=== PATIENT | male | born 1945 | race Caucasian/White ===

== ENCOUNTER 2018-04-18 18:20 | Inpatient (IN) ==
[2018-04-18] MEDS ORDERED: Artificial Tears SOLN 15 ML BOTTLE BOTH EYES PRN (22:31)
[2018-04-18] MEDS ORDERED: Naloxone 0.4 MG/ML INJ IVP PRN (22:31)
--- NOTE | 2018-04-18 22:44 | Internal Med History&Physical ---
<Aime Solis - Last Filed: 04/19/18 01:16> Date of Encounter: 04/19/18 Time of Encounter: 22:40 Internal Medicine - H&P: HPI Chief complaint: sob Admitted From: Home Plans for Post Hospital Care: Home History of present illness: Mr. Calderon is a 72 year old male with history of A. fib on Coumadin, paraplegia , diastolic CHF is transferred from [facility] after being intubated for acute respiratory failure secondary to acute on chronic diastolic congestive heart failure. Patient is intubated and sedated. Patient presented [facility] on 04/16/18 with chief complaint of shortness of breath that was progressively worsening for 5 days. Patient's reports that she was replacing the patient's mattress last Saturday (patient has paraplegia from failed lumbar spinal fusion surgery) , lifted the patient up with a manual credit risk analyst and during the process patient slipped inside of the credit risk analyst, without falling, and patient told his that he had sudden onset of pain in his left flank. Patient's felt his left flank and noticed a knot. During the next five days, patient was noticed to have worsening edema of the lower extremities. Family noticed patient had decreased appetite, and worsening confusion. Family also states the patient did not have fevers, chills, chest pain, cough, hemoptysis, hematemesis, melena, hematochezia. Family does report sputum production. Due to worsening confusion and shortness of breath patient was brought to the ED. At that time it was noticed that he had a large hematoma in his left abdominal/flank wall. Patient was noted to have blood in the rectum by ED doctor. He was noticed to have a hemoglobin of 5.5, hypotensive , YVES, hyperkalemia, INR of 18, CHF exacerbation, WBC was 24 platelets 294, serum creatinine 2.92. Patient was transfused 2 units of packed red blood cells and started on norepinephrine drip. His INR was reversed with vitamin K and FFP and he was started on IV Lasix for diuresis. He was started on Protonix twice a day. Patient's hemoglobin improved to 8, INR to 1.8 but he still required pressor support and serum creatinine was 2.7. He underwent chest x- ray which showed cardiomegaly with interstitial pulmonary edema. Echocardiogram showed a left ventricular ejection fraction of 55-60% with aortic stenosis. Retroperitoneal ultrasound was negative for stones or obstructive uropathy. Initial ABG on admission at [facility] showed pH of 7.34 with a PCO2 of 25 and bicarbonate of 13.5. CPK was 236. On midnight of patient developed worsening confusion, shortness of breath and repeat ABG showed a pH of 6.9 with a PCO2 of 111 and a PO2 of 47 patient was intubated at [facility]. Thereafter patient was transferred to [facility] for further evaluation and treatment as there was mention of the patient may require dialysis for fluid overload and YVES. Internal Medicine - H&P: Meds Acidophilus 500 kate u PO DAILY 04/18/18 [History] Ascorbic Acid [Vitamin C] 500 mg PO DAILY 04/18/18 [History] Calcium Citrate/Vitamin D2 [Cosmo-Citrate Plus Vitamin D Tab] 2 each PO 04/18/18 [ History] Ferrous Sulfate 325 mg PO DAILY 04/18/18 [History] Gabapentin [Neurontin] 300 mg PO BID 04/18/18 [History] Lantus 30 units SQ ONCE 04/18/18 [History] Pioglitazone HCl [Actos] 30 mg PO DAILY 04/18/18 [History] Potassium Chloride [Potassium Chloride] 20 mg PO DAILY 04/18/18 [History] Pravastatin Sodium [Pravachol] 20 mg PO THIERRY 04/18/18 [History] Warfarin [Coumadin] 5 mg PO DAILY 04/18/18 [History] metFORMIN [Glucophage] 500 mg PO TID 04/18/18 [History] 3 Allergy/AdvReac Type Severity Reaction Status Date / Time iodine Allergy Unknown Hives Verified 04/18/18 22:51 ROS unobtainable: due to endotracheal tube All Systems PM: A 10-system review of systems was performed and is negative for pertinent findings except as documented above in the HPI. - Constitutional Vitals: Resp Pulse Ox 14 100 04/18/18 21:26 04/18/18 21:26 Exam: General: Intubated, sedated, does not follow commands. HEENT: Head atraumatic, normocephalic, absent fullness in neck absent lymphadenopathy, Heart: Regular rate and rhythm with no murmur Lungs: Clear to auscultation bilaterally anteriorly Abdomen: Edematous, left flank wall/abdominal wall hematoma, positive bowel sounds Skin: Stage II coccyx decubitus ulcer with oozing of blood Extremities: 3+ pedal edema Neuro: Intubated and sedated Vascular: radial pulses 2 out of 4 Internal Med - H&P Results - Labs CBC & Chem 7: 04/18/18 22:43 04/18/18 22:43 - Assessment and plan (1) Anemia Current Visit: Yes Status: Acute Assessment and plan: 72-year-old male presented to [facility] and was found to have severe anemia of 5.5 He was found to have blood in his rectum by the [facility] emergency department as well as a large abdominal wall hematoma He was also supratherapeutic on warfarin. INR was 18 He is transfused 2 units of packed red blood cells, FFP and INR was reversed with vitamin K He was also hypotensive and required pressor support. Currently ON PPI BID, GI consulted. hold coumadin. Ct abdomen w/o contrast Qualifiers: Anemia type: other cause Other causes of anemia: acute posthemorrhagic Qualified Code(s): D62 - Acute posthemorrhagic anemia (2) GI bleed Current Visit: Yes Status: Acute Assessment and plan: Secondary to supratherapeutic INR INR 3.3. On PPI twice a day Positive fecal Hemoccult Currently patient is normotensive We will have GI consulted for evaluation. Qualifiers: GI bleed type/associated pathology: unspecified gastrointestinal hemorrhage type Qualified Code(s): K92.2 - Gastrointestinal hemorrhage, unspecified (3) Acute respiratory failure with hypoxia Current Visit: Yes Status: Acute Assessment and plan: Acute respiratory failure with hypoxia and hypercapnia secondary to acute on chronic congestive heart failure Patient is currently intubated, sedated plan: diurese patient with lasix 40mg IV. We will obtain CT of the chest, morning ABG. (4) Atrial fibrillation Current Visit: Yes Status: Acute Assessment and plan: Patient has history of atrial fibrillation and is on warfarin for anticoagulation Hold warfarin secondary to GI bleed He is rate controlled. Qualifiers: Atrial fibrillation type: chronic Qualified Code(s): I48.2 - Chronic atrial fibrillation (5) Acute renal failure Current Visit: Yes Status: Acute Assessment and plan: Patient presented with acute renal failure likely secondary to hypotension, anemia, poor oral intake [place] patient does not have CTD Anemia resolved after transfusion and patient's blood pressure is being supported by her epinephrine at 4 g He is severely fluid overloaded and patient's serum creatinine has been around 2.7 to 3.0 at [facility]. Plan: Hourly urine output, patient will need to be diuresed due to fluid overload. Morning BMP. If patient does not have adequate urine production, has worsening renal failure with refractory edema he may need dialysis. Qualifiers: Acute renal failure type: unspecified Qualified Code(s): N17.9 - Acute kidney failure, unspecified (6) Acute on chronic diastolic congestive heart failure Current Visit: Yes Status: Acute Assessment and plan: Likely secondary to anemia Echocardiogram done at [facility] shows EF of 55-60% with aortic stenosis Plan to diurese patient with IV Lasix Strict I's and O's (7) DVT prophylaxis Current Visit: Yes Status: Acute Assessment and plan: E PCD's. - Time Spent With Patient Total time spent is greater than 50% in coordination of care (as documented) at patient's floor/unit and/or counseling patient: <Louie Meléndez - Last Filed: 04/19/18 02:39> Date of Encounter: 04/19/18 Internal Medicine - H&P: HPI History of present illness: Mr. Calderon is a 72 year old male All Systems PM: A 10-system review of systems was performed and is negative for pertinent findings except as documented above in the HPI. - Constitutional Vitals: Temp Pulse Resp BP Pulse Ox 97.7 F 65 14 134/84 100 04/19/18 02:00 04/19/18 02:00 04/19/18 02:16 04/19/18 02:00 04/19/18 02:16 Internal Med - H&P Results - Labs CBC & Chem 7: 04/18/18 22:43 04/18/18 22:43 Labs: Short CBC 04/18/18 Range/Units 22:43 WBC 11.6 H (4.3-11.1) K/mcL Hgb 8.7 L (12.9-16.9) g/dL Hct 25.2 L (37.5-50.1) % Plt Count 144 (140-400) K/mcL Neutrophils # 9.1 H (1.6-8.9) K/mcL BMP 04/18/18 22:43 Sodium 130 L Potassium 4.7 Chloride 97 L Carbon Dioxide 20 L BUN 69 H Creatinine 3.05 H Glucose 98 Calcium 7.3 L Liver Function 04/18/18 Range/Units 22:43 Total Bilirubin 1.8 H (0.3-1.0) mg/dL AST 69 H (13-39) Units/L ALT 90 H (7-52) Units/L Alkaline Phosphatase 54 (34-104) Units/L Albumin 2.8 L (3.5-5.7) g/dL Urine 04/19/18 Range/Units 01:45 Urine Color Yellow (Yellow) Urine Clarity Cloudy A (Clear) Urine pH 5.0 (5.0-8.0) pH Units Ur Specific [place] 1.017 (1.010-1.025) Urine Protein 100 H (Neg-Trace) mg/dL Urine Glucose (UA) Normal (Normal) mg/dL - ABG Interpretation ABG results: 04/18/18 23:20 ABG pH 7.45 ABG pCO2 33 L ABG pO2 133 H ABG HCO3 23 ABG Total CO2 24 ABG O2 Saturation 99 H ABG Base Excess -1 - Assessment and plan (1) Acute respiratory failure with hypoxia Current Visit: Yes Status: Acute (2) GI bleed Current Visit: Yes Status: Acute Qualifiers: GI bleed type/associated pathology: unspecified gastrointestinal hemorrhage type Qualified Code(s): K92.2 - Gastrointestinal hemorrhage, unspecified (3) Anemia Current Visit: Yes Status: Acute Qualifiers: Anemia type: other cause Other causes of anemia: acute posthemorrhagic Qualified Code(s): D62 - Acute posthemorrhagic anemia (4) Atrial fibrillation Current Visit: Yes Status: Acute Qualifiers: Atrial fibrillation type: chronic Qualified Code(s): I48.2 - Chronic atrial fibrillation (5) Acute renal failure Current Visit: Yes Status: Acute Qualifiers: Acute renal failure type: unspecified Qualified Code(s): N17.9 - Acute kidney failure, unspecified (6) Acute on chronic diastolic congestive heart failure Current Visit: Yes Status: Acute (7) DVT prophylaxis Current Visit: Yes Status: Acute - Time Spent With Patient Total time spent is greater than 50% in coordination of care (as documented) at patient's floor/unit and/or counseling patient: - Attending Attestation The patient is a 72-year-old man with a history of atrial fibrillation on long- standing warfarin, heart failure, hypertension and diabetes who is transferred here from outside hospital with acute hypoxic respiratory failure during initially presenting with shortness of breath that was progressively developing over a five-day course with associated edema. He ultimately became confused with decreased appetite and poor mentation although there were no fever, chills or chest pain reported. He was found to be anemic at 5.5, hypotensive with acute kidney injury, hyperkalemia and a supratherapeutic INR at 18. CHF exacerbation and reversal of INR with vitamin K and FFP in addition to RBC transfusion and furosemide for diuresis. He is now requiring vasopressor support and was noted to have a large hematoma upon his initial admission. He is transferred here for ongoing care due to his critical state. The patient is paraplegic from a failed lumbar spinal fusion surgery. On my current assessment he is an obese white male who is sedated to RASS-3. Diminished breath sounds bilaterally. Mildly distended abdomen. Lab work obtained on arrival to our ICU is remarkable for WBC of 11.6, hemoglobin of 8.7, adequate ABG but has some electrolyte imbalances with a sodium of 130, phosphorus of 5.0. Potassium and magnesium are within normal limits. INR is down to 3.3 with no signs of overt kylie bleeding. We will attempt diuresis with furosemide and support blood pressure with norepinephrine, supplement electrolytes as needed. We will consult nephrology for need for CRRT. Pulmonary critical care consultation is needed. We will obtain an echo here and huerta CT to rule out underlying hematomas. Case discussed with resident.
[2018-04-18 22:57] LABS: INR 3.3; Prothrombin Time 36.8 Seconds (9.4-12.1)
[2018-04-18 23:24] LABS: ABG Base Excess -1 mEq/L (-2 to 3); ABG HCO3 23 mEq/L (21-27); ABG Oxygen Saturation 99 % (95-98); ABG PCO2 33 mmHg (35-45); ABG PH 7.45 pH Units (7.32-7.45); ABG PO2 133 mmHg (85-104); ABG TCO2 24 mEq/L (20-26); Blood Gas Modality ASSIST CONTROL; Blood Gas PEEP 5 cm H2O; Blood Gas Respiration Rate 14; Blood Gas VT 550 cc
[2018-04-18] MEDS ORDERED: Potassium Chloride 40 MEQ/200 ML BAG IVPB PRN (23:47)
[2018-04-18] MEDS: FentaNYL (PF) 1,000 MCG in 0.9 % Sodium Chloride 80 ML IVC SCH (23:54)
[2018-04-18] MEDS: Norepinephrine 4 MG in D5% in Water 250 ML IVC SCH (23:57)
[2018-04-19 00:57] LABS: Basophils % 0.1 %; Eosinophils # 0.1 K/mcL (0.0-0.6); Eosinophils % 0.4 %; Hematocrit 25.2 % (37.5-50.1); Hemoglobin 8.7 g/dL (12.9-16.9); Immature Granulocytes % 0.9 % (0-4); Lymphocytes # 1.1 K/mcL (0.6-4.6); Lymphocytes % 9.8 %; Mean Corpuscular HGB Conc 34.5 g/dL (31.6-35.5); Mean Corpuscular Hemoglobin 31.3 pg (28.0-33.3); Mean Corpuscular Volume 90.6 fL (83.0-100.0); Monocytes # 1.2 K/mcL (0.0-1.3); Monocytes % 10.3 %; Neutrophils # 9.1 K/mcL (1.6-8.9); Nucleated Red Blood Cells 5.7 /100 WBC (0); Platelet Count 144 K/mcL (140-400); Red Blood Count 2.78 M/mcL (4.19-5.50); Red Cell Distribution Width 15.6 % (11.5-14.5); Segmented Neutrophils % 78.5 %
[2018-04-19 01:10] LABS: Albumin 2.8 g/dL (3.5-5.7); Albumin/Globulin Ratio 1.1 (1.1-2.2); Bilirubin,Total 1.8 mg/dL (0.3-1.0); Calcium 7.3 mg/dL (8.6-10.3); Globulin 2.5 g/dL (2.4-3.5); Magnesium 1.6 mg/dL (1.6-2.6); Potassium 4.7 mEq/L (3.5-5.1); Total Protein 5.3 g/dL (6.4-8.9)
[2018-04-19] MEDS ORDERED: Furosemide 40 MG/4 ML VIAL IVP SCH (01:16)
[2018-04-19 01:56] LABS: Bilirubin,Urine Negative (Negative); Blood,Urine Large (Negative); Clarity,Urine Cloudy (Clear); Color,Urine Yellow (Yellow); Glucose,Urine (UA) Normal (Normal); Ketones,Urine Negative (Negative); Leukocyte Esterase,Urine Moderate (Negative); Nitrite,Urine Negative (Negative); Protein,Urine 100 mg/dL (Neg-Trace); Specific Gravity,Urine 1.017 (1.010-1.025); Urobilinogen,Urine Normal (Normal)
[2018-04-19 01:57] LABS: Bacteria,Urine None Seen per hpf (None-Few); Hyaline Casts,Urine Few per lpf (None-Few); RBC,Urine 15-30 per hpf (0-3); Squamous Epithelial Cell,Urine Many per lpf (None-Few); WBC,Urine 15-30 per hpf (0-3)
[2018-04-19] MEDS: Artificial Tears SOLN 15 ML BOTTLE BOTH EYES SCH ×7 (02:12→23:12)
[2018-04-19 04:21] LABS: ABG Base Excess -1 mEq/L (-2 to 3); ABG HCO3 23 mEq/L (21-27); ABG Oxygen Saturation 92 % (95-98); ABG PCO2 33 mmHg (35-45); ABG PH 7.46 pH Units (7.32-7.45); ABG PO2 59 mmHg (85-104); ABG TCO2 24 mEq/L (20-26); Blood Gas Modality ASSIST CONTROL; Blood Gas PEEP 5 cm H2O; Blood Gas Respiration Rate 14; Blood Gas VT 550 cc
[2018-04-19 04:40] LABS: Basophils % 0.1 %; Eosinophils # 0.1 K/mcL (0.0-0.6); Eosinophils % 0.5 %; Hematocrit 26.3 % (37.5-50.1); Immature Granulocytes % 1.3 % (0-4); Lymphocytes # 1.2 K/mcL (0.6-4.6); Mean Corpuscular HGB Conc 34.2 g/dL (31.6-35.5); Mean Corpuscular Hemoglobin 30.9 pg (28.0-33.3); Mean Corpuscular Volume 90.4 fL (83.0-100.0); Mean Platelet Volume 10.7 fL (9.4-12.4); Monocytes # 1.3 K/mcL (0.0-1.3); Monocytes % 10.2 %; Neutrophils # 10.3 K/mcL (1.6-8.9); Nucleated Red Blood Cells 5.1 /100 WBC (0); Platelet Count 163 K/mcL (140-400); Red Blood Count 2.91 M/mcL (4.19-5.50); Red Cell Distribution Width 15.7 % (11.5-14.5); Segmented Neutrophils % 78.9 %
[2018-04-19 04:52] LABS: INR 2.9
[2018-04-19 05:00] LABS: Calcium 7.3 mg/dL (8.6-10.3); Potassium 4.6 mEq/L (3.5-5.1)
[2018-04-19] MEDS: Pantoprazole 40 MG VIAL IVP SCH ×2 (07:05→17:20)
--- NOTE | 2018-04-19 08:31 | Pulmonology Consult Note ---
<BridgettDanii M - Last Filed: 04/19/18 11:00> Date of Encounter: 04/19/18 Medications and Allergies Ascorbic Acid [Vitamin C] 500 mg PO DAILY 04/18/18 [History] Calcium Citrate/Vitamin D2 [Cosmo-Citrate Plus Vitamin D Tab] 2 tab PO DAILY 04/18 [History] Ferrous Sulfate [Iron] 325 mg PO DAILY 04/18/18 [History] Gabapentin [Neurontin] 300 mg PO BID 04/18/18 [History] Insulin Glargine,Hum.rec.anlog [Lantus Solostar] 30 unit SQ DAILY 04/18/18 [ History] Lactobacillus Acidophilus [Acidophilus] 1 cap PO DAILY 04/18/18 [History] Pioglitazone HCl [Actos] 30 mg PO DAILY 04/18/18 [History] Potassium Chloride [Potassium Chloride] 20 mg PO 04/18/18 [History] Pravastatin Sodium [Pravachol] 20 mg PO DAILY 04/18/18 [History] Warfarin [Coumadin] 5 mg PO DAILY 04/18/18 [History] Metformin HCl [Metformin HCl ER] 500 mg PO 04/19/18 [History] 3 Allergy/AdvReac Type Severity Reaction Status Date / Time iodine Allergy Unknown Hives Verified 04/18/18 22:51 All Systems: The remainder of the systems were reviewed and are negative Physical Examination Vital Signs: Vital Signs, Last 4 Hours Temp Pulse Resp BP Pulse Ox 04/19/18 10:00 79 13 104/74 98 04/19/18 09:10 13 104/74 99 04/19/18 09:00 79 12 95/64 99 04/19/18 08:55 97.4 F L 04/19/18 08:00 75 15 123/80 99 04/19/18 07:30 64 14 117/73 99 04/19/18 07:25 14 104/74 100 Ventilator Settings Ventilator Settings: Ventilator Settings, Last 8 Hours Ventilator Tidal Volume 550 Setting Ventilator Tidal Volume 500 Setting Ventilator Tidal Volume 550 Setting Ventilator Tidal Volume 550 Setting Ventilator Tidal Volume 550 Setting Ventilator Tidal Volume 550 Setting Ventilator Tidal Volume 550 Setting Ventilator Tidal Volume 550 Setting Ventilator Tidal Volume 550 Setting Ventilator Tidal Volume 550 Setting Ventilator Tidal Volume 550 Setting Ventilator Tidal Volume 550 Setting Ventilator Respiratory Rate 12 Setting Ventilator Respiratory Rate 12 Setting Ventilator Respiratory Rate 12 Setting Ventilator Respiratory Rate 12 Setting Ventilator Respiratory Rate 14 Setting Ventilator Respiratory Rate 14 Setting Ventilator Respiratory Rate 14 Setting Ventilator Respiratory Rate 14 Setting Ventilator Respiratory Rate 14 Setting Ventilator Respiratory Rate 14 Setting Ventilator Respiratory Rate 14 Setting Ventilator Respiratory Rate 14 Setting Actual Respiratory Rate 13 Actual Respiratory Rate 13 Actual Respiratory Rate 12 Actual Respiratory Rate 12 Actual Respiratory Rate 14 Actual Respiratory Rate 14 Actual Respiratory Rate 14 Actual Respiratory Rate 14 Actual Respiratory Rate 14 Actual Respiratory Rate 14 Actual Respiratory Rate 14 Positive End Expiratory 5 Pressure Positive End Expiratory 5 Pressure Positive End Expiratory 5 Pressure Positive End Expiratory 5 Pressure Positive End Expiratory 5 Pressure Positive End Expiratory 5 Pressure Positive End Expiratory 5 Pressure Positive End Expiratory 5 Pressure Positive End Expiratory 5 Pressure Positive End Expiratory 5 Pressure Positive End Expiratory 5 Pressure Positive End Expiratory 5 Pressure Peak Inspiratory Airway 20 Pressure Peak Inspiratory Airway 21 Pressure Peak Inspiratory Airway 20 Pressure Peak Inspiratory Airway 19 Pressure Peak Inspiratory Airway 22 Pressure Peak Inspiratory Airway 22 Pressure Peak Inspiratory Airway 22 Pressure Peak Inspiratory Airway 22 Pressure Peak Inspiratory Airway 22 Pressure Peak Inspiratory Airway 22 Pressure Peak Inspiratory Airway 22 Pressure Results - Laboratory Findings CBC and BMP: 04/19/18 04:26 04/19/18 04:26 ABG ABG pH 7.46 pH Units (7.32-7.45) H 04/19/18 04:18 ABG pCO2 33 mmHg (35-45) L 04/19/18 04:18 ABG pO2 59 mmHg (85-104) L D 04/19/18 04:18 ABG O2 Saturation 92 % (95-98) L 04/19/18 04:18 PT/INR, D-dimer PT 33.0 Seconds (9.4-12.1) H 04/19/18 04:26 Abnormal lab findings: Abnormal lab results WBC 13.1 K/mcL (4.3-11.1) H 04/19/18 04:26 RBC 2.91 M/mcL (4.19-5.50) L 04/19/18 04:26 Hgb 9.0 g/dL (12.9-16.9) L 04/19/18 04:26 Hct 26.3 % (37.5-50.1) L 04/19/18 04:26 RDW 15.7 % (11.5-14.5) H 04/19/18 04:26 Neutrophils # 10.3 K/mcL (1.6-8.9) H 04/19/18 04:26 Nucleated RBCs/100 WBC 5.1 /100 WBC (0) H 04/19/18 04:26 PT 33.0 Seconds (9.4-12.1) H 04/19/18 04:26 ABG pH 7.46 pH Units (7.32-7.45) H 04/19/18 04:18 ABG pCO2 33 mmHg (35-45) L 04/19/18 04:18 ABG pO2 59 mmHg (85-104) L D 04/19/18 04:18 ABG O2 Saturation 92 % (95-98) L 04/19/18 04:18 Sodium 132 mEq/L (136-145) L 04/19/18 04:26 Chloride 97 mEq/L (98-107) L 04/19/18 04:26 Carbon Dioxide 21 mEq/L (23-29) L 04/19/18 04:26 BUN 69 mg/dL (8-23) H 04/19/18 04:26 Creatinine 3.03 mg/dL (0.70-1.30) H 04/19/18 04:26 Est GFR ( Amer) 25 (> 60) L 04/19/18 04:26 Est GFR (Non-Af Amer) 20 (> 60) L 04/19/18 04:26 Glucose 115 mg/dL (70-105) H 04/19/18 04:26 POC Glucose 112 mg/dL (70-99) H 04/19/18 00:46 Calcium 7.3 mg/dL (8.6-10.3) L 04/19/18 04:26 Venous Ioniz Calcium 0.90 mmol/L (1.15-1.35) L 04/19/18 01:55 Phosphorus 5.0 mg/dL (2.7-4.5) H 04/18/18 22:43 Total Bilirubin 1.8 mg/dL (0.3-1.0) H 04/18/18 22:43 AST 69 Units/L (13-39) H 04/18/18 22:43 ALT 90 Units/L (7-52) H 04/18/18 22:43 Serum Total Protein 5.3 g/dL (6.4-8.9) L 04/18/18 22:43 Albumin 2.8 g/dL (3.5-5.7) L 04/18/18 22:43 Urine Clarity Cloudy (Clear) A 04/19/18 01:45 Urine Protein 100 mg/dL (Neg-Trace) H 04/19/18 01:45 Urine Blood Large (Negative) H 04/19/18 01:45 Ur Leukocyte Esterase Moderate (Negative) H 04/19/18 01:45 Urine Microscopic RBC 15-30 per hpf (0-3) H 04/19/18 01:45 Urine Microscopic WBC 15-30 per hpf (0-3) H 04/19/18 01:45 Ur Squamous Epith Cells Many per lpf (None-Few) H 04/19/18 01:45 - Clinical Findings Intake & Output: Intake & Output 04/18/18 04/19/18 04/19/18 23:59 07:59 15:59 Intake Total 54 / 54 0 / 0 Output Total 275 / 275 250 / 250 Balance -221 / -221 -250 / -250 Weight 147.1 kg 149 kg Consult Discharge Plan - Plan Referrals: NONE,PCP [Primary Care Provider] - - Attending Attestation I examined this patient and my medical decision-making was reviewed with the Resident Physician. I agree with the documented findings, disposition and treatment plan as described except to the extent set forth below. Patient seen and examined. Labs, radiology, chart personally reviewed. 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 Patient is known to be paraplegic. Pulmonary: Acceptable oxygenation and ventilation on the ventilator, with patient having evidence of abnormality in his ABG necessary vent changes was made with lowering of his minute ventilation. When patient is more stable then trial off spontaneous breathing trial. Cardiovascular: Patient on Levophed with evidence of shock and this could be secondary to acute anemia from coagulopathy and blood loss and less likely septic shock. GI: Nutrition per dietary and GI prophylaxis per routine Heme: DVT prophylaxis per routine ID: Continue antibiotics and plan to de-escalation. Check lactic acid and empiric short course of antibiotics is reasonable. Renal; urine out put and renal funtion reviewed. Appreciate nephrology input and agree with plan of care. Clinically patient has evidence of hypervolemia and fluid boluses not recommended, however albumin can be given with diuresis. Endorcine: blood glucose is monitored Lines: all lines checked and no evidence of infections Skin: skin care to prevent pressure ulcers per nursing routine care Overall prognosis is poor. I spent 35 min of Critical Care time with this patient. It involved decision making of high complexity to assess, manipulate, and support vital organ system failure and/or to prevent further life threatening deterioration of the patient' s condition. The time involved in the performance of separately reportable procedures was not counted toward critical care time. <Radha Atwood - Last Filed: 04/19/18 12:14> Date of Encounter: 04/19/18 Time of Encounter: 09:02 Assessment and Plan (1) Acute respiratory failure with hypoxia Current Visit: Yes Status: Acute Possibly secondary to acute on chronic congestive heart failure Patient is currently intubated and sedated Possible CT of chest later today diuresis for fluid overload Continue to monitor ABGs (2) Acute on chronic diastolic congestive heart failure Current Visit: Yes Status: Acute Likely secondary to anemia Echo done Jessi shows EF of 55-60% with aortic stenosis Strict I's and O's Nephrology has been consulted for their recommendations (3) Acute renal failure Current Visit: Yes Status: Acute Since likely secondary to hypotension, anemia, poor oral intake. patient's blood pressure is being supported 4ug Patient's hemoglobin has increased to 9 after transfusions. Creatinine today of 3.03 Monitor hourly urine output Possible diuresis for fluid overload Nephrology has been consult and further recommendations Qualifiers: Acute renal failure type: unspecified Qualified Code(s): N17.9 - Acute kidney failure, unspecified (4) Anemia Current Visit: Yes Status: Acute On presentation of ulcer hemoglobin of 5.5 Hemoccult-positive Large abdominal wall hernia hematoma Supratherapeutic on warfarin INR of 18 today's INR is 2.9 Transfused with 2 units of PRBCs, FFP and INR first with vitamin K Pressor support Continue to hold Coumadin Continue PPI twice a day CT of the abdomen without contrast is ordered Qualifiers: Anemia type: other cause Other causes of anemia: acute posthemorrhagic Qualified Code(s): D62 - Acute posthemorrhagic anemia (5) GI bleed Current Visit: Yes Status: Acute On presentation of ulcer hemoglobin of 5.5 Hemoccult-positive Large abdominal wall hernia hematoma Supratherapeutic on warfarin INR of 18 today's INR is 2.9 Transfused with 2 units of PRBCs, FFP and INR first with vitamin K Pressor support Continue to hold Coumadin Continue PPI twice a day CT of the abdomen without contrast is ordered Qualifiers: GI bleed type/associated pathology: unspecified gastrointestinal hemorrhage type Qualified Code(s): K92.2 - Gastrointestinal hemorrhage, unspecified (6) Atrial fibrillation Current Visit: Yes Status: Acute History of A. fib on Coumadin for anticoagulation Hold Coumadin Rate is controlled Continue to monitor Qualifiers: Atrial fibrillation type: chronic Qualified Code(s): I48.2 - Chronic atrial fibrillation (7) DVT prophylaxis Current Visit: Yes Status: Acute EPCDs, was supra-therapeutic prior to admission History of Present Illness Consult date: 04/19/18 Requesting physician: Aime Solis Reason for consult: other (respiratory failure) Chief complaint: Shortness of breath History of present illness: Mr. Calderon is a 72-year-old male with history of A. fib currently on Coumadin, paraplegia post back surgery, diastolic CHF. He is transferred here he from [facility] after being intubated for acute respiratory failure secondary to acute on chronic diastolic congestive heart failure. He presented to [facility] on 04/16/18 the chief complaint of shortness of breath. His reported that she was getting the patient with a manual dba developer and during the process the patient slipped inside the dba developer without falling. He had a sudden onset of pain in his left flank. Over the next 5 days he noticed that that he had worsening edema in the lower extremities and then the shortness of breath was getting worse. Her presentation to the ED had a large hematoma in the left flank, blood in the rectum noticed by Jc Gillis, hemoglobin of 5.5, hypotensive, YVES , hyperkalemia, INR 18, CHF exacerbation, patient was transfused with 2 units of PRBC and started on norepinephrine drip, INR was reversed with vitamin K and FFP and he was started on IV Lasix for diuresis. Was requiring pressor support. Chest x-ray showed cardiomegaly with interstitial pulmonary edema. Echocardiogram showed a left intraocular ejection fraction of 55-60% with aortic stenosis. Initial ABG on admission showed pH of 7.34 CO2 of 25 and bicarbonate of 13.5. At midnight on [id number] patient developed worsening confusion, shortness of breath, and a repeat ABG showed a pH of 6.9 with PCO2 of 111 and PO2 of 47 and the patient was animated. He was then transferred to [facility] for further evaluation and treatment, there is mention of the patient possibly needing dialysis or fluid overload in YVES. Patient was examined at bedside today, was awakened with voice. Hemoglobin is 9.0 and hematocrit is 26.3 this morning. Vent settings were adjusted. Past Med Surg Social Fam HX - Past Medical History Medical history: atrial fibrillation, diabetes, GI bleed, hyperlipidemia, hypertension, TIA Additional medical history: Back pain, blood thinner Psychiatric history: depression - Past Surgical History Surgical History: orthopedic, other - Social History Smoking Status: Never smoker Smokeless Tobacco Status: No Alcohol use: none Drug use: none ROS unobtainable: due to endotracheal tube All Systems: The remainder of the systems were reviewed and are negative Physical Examination Vital Signs: Vital Signs, Last 4 Hours Temp Pulse Resp BP Pulse Ox 04/19/18 08:00 75 15 123/80 99 04/19/18 07:30 64 14 117/73 99 04/19/18 06:09 14 100 04/19/18 06:00 97.7 F 67 14 115/85 100 04/19/18 05:00 71 14 99/61 100 General appearance: other (Sedated and intubated) Eyes: nonicteric ENT: oropharynx dry Auscultation: bilateral: diminished breath sounds (Diffusely) Cardiovascular: regular rate and rhythm Gastrointestinal: normoactive bowel sounds, soft, non-distended Extremities: no cyanosis, edema (3+ pitting to the knee) Ventilator Settings Ventilator Settings: Ventilator Settings, Last 8 Hours Ventilator Tidal Volume 550 Setting Ventilator Tidal Volume 550 Setting Ventilator Tidal Volume 550 Setting Ventilator Tidal Volume 550 Setting Ventilator Tidal Volume 550 Setting Ventilator Tidal Volume 550 Setting Ventilator Tidal Volume 550 Setting Ventilator Tidal Volume 550 Setting Ventilator Tidal Volume 550 Setting Ventilator Tidal Volume 550 Setting Ventilator Tidal Volume 550 Setting Ventilator Tidal Volume 550 Setting Ventilator Tidal Volume 550 Setting Ventilator Respiratory Rate 12 Setting Ventilator Respiratory Rate 14 Setting Ventilator Respiratory Rate 14 Setting Ventilator Respiratory Rate 14 Setting Ventilator Respiratory Rate 14 Setting Ventilator Respiratory Rate 14 Setting Ventilator Respiratory Rate 14 Setting Ventilator Respiratory Rate 14 Setting Ventilator Respiratory Rate 14 Setting Ventilator Respiratory Rate 14 Setting Ventilator Respiratory Rate 14 Setting Ventilator Respiratory Rate 14 Setting Ventilator Respiratory Rate 14 Setting Actual Respiratory Rate 12 Actual Respiratory Rate 14 Actual Respiratory Rate 14 Actual Respiratory Rate 14 Actual Respiratory Rate 14 Actual Respiratory Rate 14 Actual Respiratory Rate 14 Actual Respiratory Rate 14 Actual Respiratory Rate 14 Actual Respiratory Rate 14 Actual Respiratory Rate 14 Actual Respiratory Rate 14 Positive End Expiratory 5 Pressure Positive End Expiratory 5 Pressure Positive End Expiratory 5 Pressure Positive End Expiratory 5 Pressure Positive End Expiratory 5 Pressure Positive End Expiratory 5 Pressure Positive End Expiratory 5 Pressure Positive End Expiratory 5 Pressure Positive End Expiratory 5 Pressure Positive End Expiratory 5 Pressure Positive End Expiratory 5 Pressure Positive End Expiratory 5 Pressure Positive End Expiratory 5 Pressure Peak Inspiratory Airway 19 Pressure Peak Inspiratory Airway 22 Pressure Peak Inspiratory Airway 22 Pressure Peak Inspiratory Airway 22 Pressure Peak Inspiratory Airway 22 Pressure Peak Inspiratory Airway 22 Pressure Peak Inspiratory Airway 22 Pressure Peak Inspiratory Airway 34 Pressure Peak Inspiratory Airway 22 Pressure Peak Inspiratory Airway 22 Pressure Peak Inspiratory Airway 22 Pressure Peak Inspiratory Airway 23 Pressure Results - Laboratory Findings CBC and BMP: 04/19/18 04:26 04/19/18 04:26 ABG ABG pH 7.46 pH Units (7.32-7.45) H 04/19/18 04:18 ABG pCO2 33 mmHg (35-45) L 04/19/18 04:18 ABG pO2 59 mmHg (85-104) L D 04/19/18 04:18 ABG O2 Saturation 92 % (95-98) L 04/19/18 04:18 PT/INR, D-dimer PT 33.0 Seconds (9.4-12.1) H 04/19/18 04:26 Abnormal lab findings: Abnormal lab results WBC 13.1 K/mcL (4.3-11.1) H 04/19/18 04:26 RBC 2.91 M/mcL (4.19-5.50) L 04/19/18 04:26 Hgb 9.0 g/dL (12.9-16.9) L 04/19/18 04:26 Hct 26.3 % (37.5-50.1) L 04/19/18 04:26 RDW 15.7 % (11.5-14.5) H 04/19/18 04:26 Neutrophils # 10.3 K/mcL (1.6-8.9) H 04/19/18 04:26 Nucleated RBCs/100 WBC 5.1 /100 WBC (0) H 04/19/18 04:26 PT 33.0 Seconds (9.4-12.1) H 04/19/18 04:26 ABG pH 7.46 pH Units (7.32-7.45) H 09/01/18 04:18 ABG pCO2 33 mmHg (35-45) L 04/19/18 04:18 ABG pO2 59 mmHg (85-104) L D 04/19/18 04:18 ABG O2 Saturation 92 % (95-98) L 04/19/18 04:18 Sodium 132 mEq/L (136-145) L 04/19/18 04:26 Chloride 97 mEq/L (98-107) L 04/19/18 04:26 Carbon Dioxide 21 mEq/L (23-29) L 04/19/18 04:26 BUN 69 mg/dL (8-23) H 04/19/18 04:26 Creatinine 3.03 mg/dL (0.70-1.30) H 04/19/18 04:26 Est GFR ( Amer) 25 (> 60) L 04/19/18 04:26 Est GFR (Non-Af Amer) 20 (> 60) L 04/19/18 04:26 Glucose 115 mg/dL (70-105) H 04/19/18 04:26 POC Glucose 112 mg/dL (70-99) H 04/19/18 00:46 Calcium 7.3 mg/dL (8.6-10.3) L 04/19/18 04:26 Venous Ioniz Calcium 0.90 mmol/L (1.15-1.35) L 04/19/18 01:55 Phosphorus 5.0 mg/dL (2.7-4.5) H 04/18/18 22:43 Total Bilirubin 1.8 mg/dL (0.3-1.0) H 04/18/18 22:43 AST 69 Units/L (13-39) H 04/18/18 22:43 ALT 90 Units/L (7-52) H 04/18/18 22:43 Serum Total Protein 5.3 g/dL (6.4-8.9) L 04/18/18 22:43 Albumin 2.8 g/dL (3.5-5.7) L 04/18/18 22:43 Urine Clarity Cloudy (Clear) A 04/19/18 01:45 Urine Protein 100 mg/dL (Neg-Trace) H 04/19/18 01:45 Urine Blood Large (Negative) H 04/19/18 01:45 Ur Leukocyte Esterase Moderate (Negative) H 04/19/18 01:45 Urine Microscopic RBC 15-30 per hpf (0-3) H 04/19/18 01:45 Urine Microscopic WBC 15-30 per hpf (0-3) H 04/19/18 01:45 Ur Squamous Epith Cells Many per lpf (None-Few) H 04/19/18 01:45 - Clinical Findings Intake & Output: Intake & Output 04/18/18 04/19/18 04/19/18 23:59 07:59 15:59 Intake Total 54 / 54 Output Total 275 / 275 Balance -221 / -221 Weight 147.1 kg 149 kg
[2018-04-19] MEDS: Chlorhexidine Rinse 15 ML MOUTHWASH MM SCH ×2 (09:32→21:28)
--- NOTE | 2018-04-19 10:32 | Nephrology Consult Note ---
Date of Encounter: 04/20/18 Time of Encounter: 10:30 Assessment and Plan (1) YVES (acute kidney injury) Current Visit: Yes Status: Acute YVES in the setting of sepsis, and multiorgan dysfunction including elevated LFTs and acute respiratory failure. Peripheral edema: recommend albumin with loop diuretics since he is nearing the point of needing NETWORK OPERATIONS TECHNICIAN such as Monica, and so loop diuretics may help correct his volume status without the invasive steps of NETWORK OPERATIONS TECHNICIAN. Will target UOP, daily weights and SCr to help guide diuresis. Hyponatremia: check Verna, UOsmo. Could suggest a hypervolemic hyponatremia. Diuresis for now as described above. Hypocalcemia: replete with electrolyte replacement protocol. Follow a renal protective strategy as able, so as to help / aid with any potential renal recovery including dosing renally cleared Rx by CrCl, avoidance of nephrotoxins as able, etc (2) Peripheral edema Current Visit: Yes Status: Acute (3) Hyponatremia Current Visit: Yes Status: Resolved (4) Elevated LFTs Current Visit: Yes Status: Acute (5) Hypocalcemia Current Visit: Yes Status: Acute (6) Anemia Current Visit: Yes Status: Acute Qualifiers: Anemia type: other cause Other causes of anemia: acute posthemorrhagic Qualified Code(s): D62 - Acute posthemorrhagic anemia (7) Acute on chronic diastolic congestive heart failure Current Visit: Yes Status: Acute History of Present Illness - Reason for Consult Consult date: 04/19/18 Acute Kidney Injury Requesting physician: Danii Urias - Chief Complaint YVES, Edema - History of Present Illness Joesph Calderon is a 72 y/o WM who transferred in from an outside hospital. He has been intubated and no family present so the HPI and ROS are unobtainable. Past Med Surg Social Fam HX - Past Medical History Medical history: atrial fibrillation, diabetes, GI bleed, hyperlipidemia, hypertension, TIA Additional medical history: Back pain, blood thinner Psychiatric history: depression - Past Surgical History Surgical History: orthopedic, other - Social History Smoking Status: Never smoker Smokeless Tobacco Status: No Alcohol use: none Drug use: none Medications and Allergies Ascorbic Acid [Vitamin C] 500 mg PO DAILY 04/18/18 [History] Calcium Citrate/Vitamin D2 [Cosmo-Citrate Plus Vitamin D Tab] 2 tab PO DAILY 04/18 [History] Ferrous Sulfate [Iron] 325 mg PO DAILY 04/18/18 [History] Gabapentin [Neurontin] 300 mg PO BID 04/18/18 [History] Insulin Glargine,Hum.rec.anlog [Lantus Solostar] 30 unit SQ DAILY 04/18/18 [ History] Lactobacillus Acidophilus [Acidophilus] 1 cap PO DAILY 04/18/18 [History] Pioglitazone HCl [Actos] 30 mg PO DAILY 04/18/18 [History] Potassium Chloride [Potassium Chloride] 20 mg PO 04/18/18 [History] Pravastatin Sodium [Pravachol] 20 mg PO DAILY 04/18/18 [History] Warfarin [Coumadin] 5 mg PO DAILY 04/18/18 [History] Metformin HCl [Metformin HCl ER] 500 mg PO 04/19/18 [History] 3 Allergy/AdvReac Type Severity Reaction Status Date / Time iodine Allergy Unknown Hives Verified 04/18/18 22:51 Review of Systems ROS unobtainable: due to endotracheal tube Exam - Vital Signs Vital signs: Initial Vital Signs Resp Pulse Ox 14 100 04/18/18 21:26 04/18/18 21:26 Vital Signs - Last 8 Hours Temp Pulse Resp BP Pulse Ox 04/19/18 10:00 79 13 104/74 98 04/19/18 09:10 13 104/74 99 04/19/18 09:00 79 12 95/64 99 04/19/18 08:55 97.4 F L 04/19/18 08:00 75 15 123/80 99 04/19/18 07:30 64 14 117/73 99 04/19/18 07:25 14 104/74 100 04/19/18 06:09 14 100 04/19/18 06:00 97.7 F 67 14 115/85 100 04/19/18 05:00 71 14 99/61 100 04/19/18 04:00 97.5 F L 84 14 107/75 100 04/19/18 03:49 14 100 04/19/18 03:00 98.1 F 65 14 111/69 100 Intake and Output 04/18/18 04/19/18 04/19/18 23:59 07:59 15:59 Intake Total 54 0 / 0 Output Total 275 / 275 250 / 250 Balance -221 / -221 -250 / -250 Intake: IV Fluids Levophed 4 MG In Dextrose 5% 54 / 54 250 ML @ 4 MCG/MIN 15.24 mls/hr IVC CONT JOHNY Rx#:[id number] Oral 0 / 0 Output: Catheter 275 / 275 250 / 250 Gastric Drainage 0 / 0 Other: Weight 147.1 kg 149 kg Blood Glucose* 112 Patient Weight 04/19/18 23:59 Weight 149 kg - General Appearance General appearance: obese, sedated on ventilator, intubated EENT: ATNC, PERRL, mucous membranes moist Neck: supple Respiratory: course breath sounds Cardiology: edema, regular rate, regular rhythm, normal S1, normal S2 Gastrointestinal: normoactive bowel sounds, no tenderness Integumentary: no rash, warm and dry Neurologic: no asterixis Additional Comments: Intubated/sedated Musculoskeletal: no cyanosis, no clubbing Results - Lab Results 04/20/18 04:00 04/20/18 04:00 Most recent lab results ABG pH 7.46 pH Units (7.32-7.45) H 04/19/18 04:18 ABG pCO2 33 mmHg (35-45) L 04/19/18 04:18 ABG pO2 59 mmHg (85-104) L D 04/19/18 04:18 ABG HCO3 23 mEq/L (21-27) 04/19/18 04:18 ABG O2 Saturation 92 % (95-98) L 04/19/18 04:18 Calcium 7.3 mg/dL (8.6-10.3) L 04/19/18 04:26 Phosphorus 5.0 mg/dL (2.7-4.5) H 04/18/18 22:43 Magnesium 1.6 mg/dL (1.6-2.6) 04/18/18 22:43 I reviewed the [facility] labs, vitals, imaging, progress notes, and I reviewed the typed summary of the [facility] hospitalization in the H&P. Consult Discharge Plan - Plan Referrals: NONE,PCP [Primary Care Provider] -
[2018-04-19] MEDS: Albumin 25% 25gram/100mL 25 GM/100 ML IV.SOLN IVPB SCH ×2 (13:17→17:20)
[2018-04-19] MEDS: Furosemide 40 MG/4 ML VIAL IVP SCH ×2 (13:43→21:29)
[2018-04-19] MEDS: Piperacillin/Tazobactam 3.375 GM in 0.9 % Sodium Chloride Mini Bag 100 ML IVPB SCH (15:42)
[2018-04-20] MEDS: FentaNYL (PF) 1,000 MCG in 0.9 % Sodium Chloride 80 ML IVC SCH (03:51)
[2018-04-20] MEDS: Artificial Tears SOLN 15 ML BOTTLE BOTH EYES SCH ×5 (03:52→19:39)
[2018-04-20] MEDS: Piperacillin/Tazobactam 3.375 GM in 0.9 % Sodium Chloride Mini Bag 100 ML IVPB SCH ×2 (03:55→15:46)
[2018-04-20 04:15] LABS: ABG Base Excess 0 mEq/L (-2 to 3); ABG HCO3 24 mEq/L (21-27); ABG Oxygen Saturation 98 % (95-98); ABG PCO2 34 mmHg (35-45); ABG PH 7.46 pH Units (7.32-7.45); ABG PO2 93 mmHg (85-104); ABG TCO2 25 mEq/L (20-26); Blood Gas Modality ASSIST CONTROL; Blood Gas PEEP 5 cm H2O; Blood Gas Respiration Rate 12; Blood Gas VT 500 cc
[2018-04-20 04:44] LABS: Basophils % 0.1 %; Eosinophils # 0.2 K/mcL (0.0-0.6); Eosinophils % 1.4 %; Hematocrit 22.8 % (37.5-50.1); Hemoglobin 7.6 g/dL (12.9-16.9); Immature Granulocytes % 1.2 % (0-4); Lymphocytes # 0.8 K/mcL (0.6-4.6); Lymphocytes % 6.5 %; Mean Corpuscular HGB Conc 33.3 g/dL (31.6-35.5); Mean Corpuscular Hemoglobin 30.2 pg (28.0-33.3); Mean Corpuscular Volume 90.5 fL (83.0-100.0); Mean Platelet Volume 9.9 fL (9.4-12.4); Monocytes % 7.5 %; Neutrophils # 10.5 K/mcL (1.6-8.9); Nucleated Red Blood Cells 1.7 /100 WBC (0); Platelet Count 142 K/mcL (140-400); Red Blood Count 2.52 M/mcL (4.19-5.50); Red Cell Distribution Width 15.7 % (11.5-14.5); Segmented Neutrophils % 83.3 %
[2018-04-20 04:50] LABS: INR 3.7
[2018-04-20 05:09] LABS: Albumin 3.1 g/dL (3.5-5.7); Albumin/Globulin Ratio 1.3 (1.1-2.2); Bilirubin,Total 3.5 mg/dL (0.3-1.0); Calcium 7.2 mg/dL (8.6-10.3); Globulin 2.3 g/dL (2.4-3.5); Magnesium 1.5 mg/dL (1.6-2.6); Phosphorous 3.9 mg/dL (2.7-4.5); Potassium 3.9 mEq/L (3.5-5.1); Total Protein 5.4 g/dL (6.4-8.9)
[2018-04-20] MEDS: Albumin 25% 25gram/100mL 25 GM/100 ML IV.SOLN IVPB SCH ×2 (06:00→20:13)
[2018-04-20] MEDS: Pantoprazole 40 MG VIAL IVP SCH ×2 (06:00→20:13)
[2018-04-20] MEDS: Norepinephrine 4 MG in D5% in Water 250 ML IVC SCH (08:48)
[2018-04-20] MEDS: Chlorhexidine Rinse 15 ML MOUTHWASH MM SCH ×2 (08:58→19:38)
[2018-04-20] MEDS: Furosemide 40 MG/4 ML VIAL IVP SCH ×3 (08:59→19:40)
--- NOTE | 2018-04-20 09:07 | Nephrology Progress Note ---
Date of Encounter: 04/20/18 Time of Encounter: 09:15 - Assessment and Plan (1) YVES (acute kidney injury) Current Visit: Yes Status: Acute YVES in the setting of sepsis, and multiorgan dysfunction including elevated LFTs and acute respiratory failure. Peripheral edema: recommend continuing the Lasix with albumin strategy seeing that he is net negative in I/Os and SCr is trending better. Will target UOP, daily weights and SCr to help guide diuresis. Since his SCr has actually trended better, he should be able to tolerate an inc'd dose of lasix, which I' ve ordered. Hypomagnesemia: replete. Monitor serum K+ while on diuretics. Hyponatremia, likely hypervolemic and has improved with diuresis. Hypocalcemia: replete with electrolyte replacement protocol. Anemia: he has a large hematoma and his H/H is falling. Transfusion parameters as per primary. His bed was too large, per report, to fit in the CT room yesterday. I've also ordered a CK. Discussed in detail with the ICU team. Follow a renal protective strategy as able, so as to help / aid with any potential renal recovery including dosing renally cleared Rx by Cr[facility], avoidance of nephrotoxins as able, etc (2) Peripheral edema Current Visit: Yes Status: Acute See above. (3) Hyponatremia Current Visit: Yes Status: Resolved (4) Elevated LFTs Current Visit: Yes Status: Acute Will monitor. Likely related to sepsis / shock liver. (5) Hypocalcemia Current Visit: Yes Status: Acute See above (6) Anemia Current Visit: Yes Status: Acute Transfusion parameters as per primary. Qualifiers: Anemia type: other cause Other causes of anemia: other cause, not classified Qualified Code(s): D64.89 - Other specified anemias (7) Acute on chronic diastolic congestive heart failure Current Visit: Yes Status: Acute As per primary. (8) Hypomagnesemia Current Visit: Yes Status: Acute See above. Subjective Principal diagnosis: Acute respiratory failure, sepsis, YVES Interval history: Pt was s/e. He remains intubated / sedated thus limiting this Subjective portion of the note. The [facility] reported improving respiratory parameters on the vent and okay UOP but still lots of edema. Objective - Vital Signs Vital signs: Vital Signs Temp Pulse Resp BP Pulse Ox 04/20/18 08:11 76 23 95/63 98 04/20/18 07:57 98.2 F 04/20/18 07:25 14 103/68 99 04/20/18 07:00 76 04/20/18 06:00 86 12 103/68 95 04/20/18 05:12 15 99 04/20/18 05:00 97 23 108/64 99 04/20/18 04:00 79 15 95/66 100 04/20/18 03:35 98.6 F 04/20/18 03:00 75 14 95/64 99 04/20/18 02:45 13 100 04/20/18 02:00 70 12 89/64 100 04/20/18 01:00 68 13 88/61 100 04/20/18 00:00 73 12 93/65 100 04/19/18 23:53 98.2 F 04/19/18 23:00 88 14 94/86 100 04/19/18 22:00 73 15 83/66 100 04/19/18 21:33 13 100 04/19/18 21:00 75 13 97/68 100 04/19/18 20:00 78 12 115/82 100 04/19/18 19:25 12 100 04/19/18 19:00 69 14 100/84 100 04/19/18 18:52 98.2 F 04/19/18 18:00 73 12 103/67 100 04/19/18 17:01 12 109/67 100 04/19/18 17:00 73 12 103/67 100 04/19/18 16:00 98.3 F 80 12 104/66 87 04/19/18 15:45 98.3 F 04/19/18 15:04 14 104/66 100 04/19/18 15:00 64 13 109/71 95 04/19/18 14:00 86 13 126/95 99 04/19/18 13:25 13 97/73 98 04/19/18 13:00 67 13 97/73 97 04/19/18 12:05 97.7 F 04/19/18 12:00 97.7 F 80 13 107/43 98 04/19/18 11:15 84 13 102/80 99 18 10:40 15 104/74 99 04/19/18 10:00 79 13 104/74 98 04/19/18 09:10 13 104/74 99 Intake and Output 04/19/18 04/20/18 04/20/18 23:59 07:59 15:59 Intake Total 250 / 250 50 / 50 100 / 100 Output Total 600 / 600 400 / 400 Balance -350 / -350 -350 / -350 100 / 100 Intake: IV Fluids 250 / 250 50 / 50 100 / 100 FentaNYL (PF) 1,000 MCG In 0.9 50 / 50 % Sodium Chloride 80 ML @ 50 MCG/HR 5 mls/hr IVC CONT JOHNY Rx #:[id number] Levophed 4 MG In Dextrose 5% 50 / 50 250 ML @ 4 MCG/MIN 15.24 mls/hr IVC CONT JOHNY Rx#:[id number] Flexbumin 25 gm In 100 ml @ 60 100 / 100 mls/hr IVPB Q12HR JOHNY Rx#: [id number] Zosyn 3.375 GM In 0.9 % Sodium 100 / 100 100 / 100 Chloride (Mini-Bag +) 100 ML @ 25 mls/hr IVPB Q12H JOHNY Rx#: [id number] Output: Catheter 600 / 600 400 / 400 Gastric Drainage 0 / 0 Other: Weight 149.9 kg Blood Glucose* 122 - General Appearance Exam: General appearance: obese, sedated on ventilator, intubated EENT: ATNC, PERRL, mucous membranes moist Neck: supple Respiratory: course breath sounds Cardiology: edema, regular rate, regular rhythm, normal S1, normal S2 Gastrointestinal: normoactive bowel sounds, no tenderness Integumentary: no rash, warm and dry Neurologic: no asterixis Additional Comments: Intubated/sedated Musculoskeletal: no cyanosis, no clubbing - Lab 04/20/18 04:00 04/20/18 04:00 Most recent lab results ABG pH 7.46 pH Units (7.32-7.45) H 04/20/18 04:11 ABG pCO2 34 mmHg (35-45) L 04/20/18 04:11 ABG pO2 93 mmHg (85-104) 04/20/18 04:11 ABG HCO3 24 mEq/L (21-27) 04/20/18 04:11 ABG O2 Saturation 98 % (95-98) 04/20/18 04:11 Calcium 7.2 mg/dL (8.6-10.3) L 04/20/18 04:00 Phosphorus 3.9 mg/dL (2.7-4.5) 04/20/18 04:00 Magnesium 1.5 mg/dL (1.6-2.6) L 04/20/18 04:00 - VTE Documentation of Mechanical Device: Intermittent pneumatic compression device Consult Discharge Plan - Plan Referrals: NONE,PCP [Primary Care Provider] -
[2018-04-20] MEDS ORDERED: Furosemide 20 MG/2 ML VIAL IVP ONE (10:26)
[2018-04-20] MEDS ORDERED: 0.9 % Sodium Chloride 1,000 ML ONE (10:46)
--- NOTE | 2018-04-20 11:23 | Pulmonology Progress Note ---
Date of Encounter: 04/20/18 Time of Encounter: 07:40 Assessment and Plan (1) Warfarin-induced coagulopathy Current Visit: Yes Status: Acute There is evidence of dropping of his H&H with coagulopathy and patient will receive packed RBC as well as fresh frozen plasma. And clinically there is evidence of possible worsening of suspected retroperitoneal hematoma and was not able to do CAT scan yesterday, however today will change his bed which hopefully will be able to fit in the machine and reversing his coagulopathy is always a risk for venous thrombosis embolism. With no improvement then he will vitamin K. Continue monitoring H&H. I spent 35 min of Critical Care time with this patient. It involved decision making of high complexity to assess, manipulate, and support vital organ system failure and/or to prevent further life threatening deterioration of the patient' s condition. The time involved in the performance of separately reportable procedures was not counted toward critical care time. (2) Acute respiratory failure with hypoxia Current Visit: Yes Status: Acute Patient had spontaneous breathing trial, however he was not completely ready and he is still not completely stable because of the acute anemia. There is some evidence of acute respiratory alkalosis and necessary then changes will be made. (3) Anemia Current Visit: Yes Status: Acute As indicated above he will need blood transfusion for his acute blood loss secondary to Neuropathy. Qualifiers: Anemia type: other cause Other causes of anemia: other cause, not classified Qualified Code(s): D64.89 - Other specified anemias (4) YVES (acute kidney injury) Current Visit: Yes Status: Acute Reviewed nephrology input and agree with the plan. I am hoping with the blood and blood product will give him more volume. (5) Peripheral edema Current Visit: Yes Status: Chronic Subjective Principal diagnosis: Acute respiratory failure, sepsis, YVES Interval history: Patient remained on a ventilator and he is lethargic but he is not in any distress Objective PUL Vital signs: Last Vital Signs Temp 98.2 F 04/20/18 07:57 Pulse 84 04/20/18 11:00 Resp 13 04/20/18 11:00 BP 103/61 04/20/18 11:00 Pulse Ox 98 04/20/18 11:00 General: Patient is in no acute distress. HEENT: Normocephalic atraumatic, pupils are equal round and reactive to light and accommodation, anicteric sclera, nares is patent, mucous membranes moist, no JVD, trachea is midline and patient is intubated Cardiovascular: Normal sinus rhythm, S1 and S2 audible, no murmur or rubs Respiratory: Diminished to auscultation bilaterally. No acute distress. No wheezing. Patient not using accessory muscles. Abdomen: Soft, nontender, nondistended, positive bowel sounds in all 4 quadrants. There is evidence of mental in the left flank area. Extremities: Warm, dry, 1+ lower extremity edema. Normal capillary refill. Neuro:follows commands. It is difficult to fully assess him due to sedation but he has quadriplegia. Skin: Warm to touch with evidence of hematoma. : No obvious abnormalities. Jennings catheter. Ventilator Settings Ventilator Settings: Ventilator Settings, Last 8 Hours Ventilator Tidal Volume 500 Setting Ventilator Tidal Volume 500 Setting Ventilator Tidal Volume 500 Setting Ventilator Tidal Volume 500 Setting Ventilator Tidal Volume 500 Setting Ventilator Tidal Volume 500 Setting Ventilator Tidal Volume 500 Setting Ventilator Tidal Volume 500 Setting Ventilator Respiratory Rate 12 Setting Ventilator Respiratory Rate 12 Setting Ventilator Respiratory Rate 12 Setting Ventilator Respiratory Rate 12 Setting Ventilator Respiratory Rate 12 Setting Ventilator Respiratory Rate 12 Setting Ventilator Respiratory Rate 12 Setting Ventilator Respiratory Rate 12 Setting Ventilator Respiratory Rate 12 Setting Ventilator Respiratory Rate 12 Setting Ventilator Respiratory Rate 12 Setting Actual Respiratory Rate 13 Actual Respiratory Rate 18 Actual Respiratory Rate 31 Actual Respiratory Rate 27 Actual Respiratory Rate 23 Actual Respiratory Rate 14 Actual Respiratory Rate 12 Actual Respiratory Rate 15 Actual Respiratory Rate 12 Actual Respiratory Rate 12 Positive End Expiratory 5 Pressure Positive End Expiratory 5 Pressure Positive End Expiratory 5 Pressure Positive End Expiratory 5 Pressure Positive End Expiratory 5 Pressure Positive End Expiratory 5 Pressure Positive End Expiratory 5 Pressure Positive End Expiratory 5 Pressure Positive End Expiratory 5 Pressure Positive End Expiratory 5 Pressure Positive End Expiratory 5 Pressure Peak Inspiratory Airway 19 Pressure Peak Inspiratory Airway 11 Pressure Peak Inspiratory Airway 11 Pressure Peak Inspiratory Airway 11 Pressure Peak Inspiratory Airway 11 Pressure Peak Inspiratory Airway 19 Pressure Peak Inspiratory Airway 21 Pressure Peak Inspiratory Airway 21 Pressure Peak Inspiratory Airway 21 Pressure Peak Inspiratory Airway 21 Pressure Results - Laboratory Findings CBC and BMP: 04/20/18 04:00 04/20/18 04:00 ABG ABG pH 7.46 pH Units (7.32-7.45) H 04/20/18 04:11 ABG pCO2 34 mmHg (35-45) L 04/20/18 04:11 ABG pO2 93 mmHg (85-104) 04/20/18 04:11 ABG O2 Saturation 98 % (95-98) 04/20/18 04:11 PT/INR, D-dimer PT 42.0 Seconds (9.4-12.1) H 04/20/18 04:00 Abnormal lab findings: Abnormal lab results WBC 12.6 K/mcL (4.3-11.1) H 04/20/18 04:00 RBC 2.52 M/mcL (4.19-5.50) L 04/20/18 04:00 Hgb 7.6 g/dL (12.9-16.9) L 04/20/18 04:00 Hct 22.8 % (37.5-50.1) L 04/20/18 04:00 RDW 15.7 % (11.5-14.5) H 04/20/18 04:00 Neutrophils # 10.5 K/mcL (1.6-8.9) H 04/20/18 04:00 Nucleated RBCs/100 WBC 1.7 /100 WBC (0) H 04/20/18 04:00 PT 42.0 Seconds (9.4-12.1) H 04/20/18 04:00 ABG pH 7.46 pH Units (7.32-7.45) H 04/20/18 04:11 ABG pCO2 34 mmHg (35-45) L 04/20/18 04:11 Chloride 97 mEq/L (98-107) L 04/20/18 04:00 BUN 73 mg/dL (8-23) H 04/20/18 04:00 Creatinine 2.84 mg/dL (0.70-1.30) H 04/20/18 04:00 Est GFR ( Amer) 27 (> 60) L 04/20/18 04:00 Est GFR (Non-Af Amer) 22 (> 60) L 04/20/18 04:00 POC Glucose 122 mg/dL (70-99) H 04/20/18 00:09 Calculated Osmolality 303 (280-300) H 04/20/18 04:00 Calcium 7.2 mg/dL (8.6-10.3) L 04/20/18 04:00 Venous Ioniz Calcium 0.90 mmol/L (1.15-1.35) L 04/19/18 01:55 Magnesium 1.5 mg/dL (1.6-2.6) L 04/20/18 04:00 Total Bilirubin 3.5 mg/dL (0.3-1.0) H 04/20/18 04:00 AST 43 Units/L (13-39) H 04/20/18 04:00 ALT 69 Units/L (7-52) H 04/20/18 04:00 Serum Total Protein 5.4 g/dL (6.4-8.9) L 04/20/18 04:00 Albumin 3.1 g/dL (3.5-5.7) L 04/20/18 04:00 Globulin 2.3 g/dL (2.4-3.5) L 04/20/18 04:00 Urine Clarity Cloudy (Clear) A 04/19/18 01:45 Urine Protein 100 mg/dL (Neg-Trace) H 04/19/18 01:45 Urine Blood Large (Negative) H 04/19/18 01:45 Ur Leukocyte Esterase Moderate (Negative) H 04/19/18 01:45 Urine Microscopic RBC 15-30 per hpf (0-3) H 04/19/18 01:45 Urine Microscopic WBC 15-30 per hpf (0-3) H 04/19/18 01:45 Ur Squamous Epith Cells Many per lpf (None-Few) H 04/19/18 01:45 - Clinical Findings Intake & Output: Intake & Output 04/19/18 04/20/18 04/20/18 23:59 07:59 15:59 Intake Total 250 / 250 50 / 50 100 / 100 Output Total 600 / 600 400 / 400 Balance -350 / -350 -350 / -350 100 / 100 Weight 149.9 kg - VTE Documentation of Mechanical Device: Intermittent pneumatic compression device Consult Discharge Plan - Plan Referrals: NONE,PCP [Primary Care Provider] -
[2018-04-20 21:39] LABS: Hematocrit 23.2 % (37.5-50.1)
[2018-04-20 22:00] LABS: Magnesium 1.9 mg/dL (1.6-2.6); Potassium 3.3 mEq/L (3.5-5.1)
[2018-04-21] MEDS: Artificial Tears SOLN 15 ML BOTTLE BOTH EYES SCH ×7 (00:38→23:04)
[2018-04-21] MEDS ORDERED: Potassium Chloride Elixir 20 MEQ/15 ML UDC GTUBE ONE (00:40)
[2018-04-21] MEDS: FentaNYL (PF) 1,000 MCG in 0.9 % Sodium Chloride 80 ML IVC SCH ×2 (02:08→20:23)
[2018-04-21] MEDS: Norepinephrine 4 MG in D5% in Water 250 ML IVC SCH ×2 (02:11→23:04)
[2018-04-21] MEDS: Piperacillin/Tazobactam 3.375 GM in 0.9 % Sodium Chloride Mini Bag 100 ML IVPB SCH (03:04)
[2018-04-21 04:01] LABS: Basophils % 0.1 %; Eosinophils # 0.3 K/mcL (0.0-0.6); Eosinophils % 2.4 %; Hematocrit 23.1 % (37.5-50.1); Hemoglobin 7.8 g/dL (12.9-16.9); Immature Granulocytes % 1.8 % (0-4); Lymphocytes # 0.8 K/mcL (0.6-4.6); Lymphocytes % 6.8 %; Mean Corpuscular HGB Conc 33.8 g/dL (31.6-35.5); Mean Corpuscular Hemoglobin 30.8 pg (28.0-33.3); Mean Corpuscular Volume 91.3 fL (83.0-100.0); Mean Platelet Volume 10.1 fL (9.4-12.4); Monocytes # 0.9 K/mcL (0.0-1.3); Monocytes % 7.8 %; Neutrophils # 9.6 K/mcL (1.6-8.9); Nucleated Red Blood Cells 1.3 /100 WBC (0); Platelet Count 138 K/mcL (140-400); Red Blood Count 2.53 M/mcL (4.19-5.50); Red Cell Distribution Width 15.8 % (11.5-14.5); Segmented Neutrophils % 81.1 %
[2018-04-21 04:02] LABS: VBG Ionized Calcium 0.86 mmol/L (1.15-1.35)
[2018-04-21 04:06] LABS: INR 2.1; Prothrombin Time 23.4 Seconds (9.4-12.1)
[2018-04-21 04:16] LABS: Albumin 3.5 g/dL (3.5-5.7); Albumin/Globulin Ratio 1.5 (1.1-2.2); Bilirubin,Total 5.9 mg/dL (0.3-1.0); Calcium 7.2 mg/dL (8.6-10.3); Globulin 2.3 g/dL (2.4-3.5); Magnesium 1.8 mg/dL (1.6-2.6); Phosphorous 3.4 mg/dL (2.7-4.5); Potassium 3.7 mEq/L (3.5-5.1); Total Protein 5.8 g/dL (6.4-8.9)
[2018-04-21 05:26] LABS: ABG Base Excess 4 mEq/L (-2 to 3); ABG HCO3 28 mEq/L (21-27); ABG Oxygen Saturation 98 % (95-98); ABG PCO2 38 mmHg (35-45); ABG PH 7.47 pH Units (7.32-7.45); ABG PO2 100 mmHg (85-104); ABG TCO2 29 mEq/L (20-26); Blood Gas Modality PRVC; Blood Gas PEEP 5 cm H2O; Blood Gas Respiration Rate 12; Blood Gas VT 480 cc
[2018-04-21] MEDS: Albumin 25% 25gram/100mL 25 GM/100 ML IV.SOLN IVPB SCH ×2 (05:42→17:36)
[2018-04-21] MEDS: Pantoprazole 40 MG VIAL IVP SCH ×2 (05:42→17:37)
--- NOTE | 2018-04-21 07:04 | Pulmonology Progress Note ---
<TashiDharmesh W - Last Filed: 04/21/18 11:28> Date of Encounter: 04/21/18 Objective PUL Vital signs: Last Vital Signs Temp 97.7 F 04/21/18 04:32 Pulse 85 04/21/18 06:00 Resp 20 04/21/18 06:00 BP 135/86 04/21/18 06:00 Pulse Ox 100 04/21/18 06:00 Ventilator Settings Ventilator Settings: Ventilator Settings, Last 8 Hours Ventilator Tidal Volume 500 Setting Ventilator Tidal Volume 480 Setting Ventilator Tidal Volume 500 Setting Ventilator Tidal Volume 480 Setting Ventilator Tidal Volume 500 Setting Ventilator Tidal Volume 500 Setting Ventilator Tidal Volume 500 Setting Ventilator Tidal Volume 480 Setting Ventilator Tidal Volume 500 Setting Ventilator Respiratory Rate 12 Setting Ventilator Respiratory Rate 12 Setting Ventilator Respiratory Rate 12 Setting Ventilator Respiratory Rate 12 Setting Ventilator Respiratory Rate 12 Setting Ventilator Respiratory Rate 12 Setting Ventilator Respiratory Rate 12 Setting Ventilator Respiratory Rate 12 Setting Ventilator Respiratory Rate 12 Setting Actual Respiratory Rate 20 Actual Respiratory Rate 20 Actual Respiratory Rate 12 Actual Respiratory Rate 17 Actual Respiratory Rate 12 Actual Respiratory Rate 12 Actual Respiratory Rate 12 Actual Respiratory Rate 21 Actual Respiratory Rate 12 Positive End Expiratory 5 Pressure Positive End Expiratory 5 Pressure Positive End Expiratory 5 Pressure Positive End Expiratory 5 Pressure Positive End Expiratory 5 Pressure Positive End Expiratory 5 Pressure Positive End Expiratory 5 Pressure Positive End Expiratory 5 Pressure Positive End Expiratory 5 Pressure Positive End Expiratory 5 Pressure Peak Inspiratory Airway 11 Pressure Peak Inspiratory Airway 10 Pressure Peak Inspiratory Airway 20 Pressure Peak Inspiratory Airway 21 Pressure Peak Inspiratory Airway 20 Pressure Peak Inspiratory Airway 20 Pressure Peak Inspiratory Airway 20 Pressure Peak Inspiratory Airway 21 Pressure Peak Inspiratory Airway 20 Pressure Results - Laboratory Findings CBC and BMP: 04/21/18 03:35 04/21/18 03:35 ABG ABG pH 7.47 pH Units (7.32-7.45) H 04/21/18 05:23 ABG pCO2 38 mmHg (35-45) 04/21/18 05:23 ABG pO2 100 mmHg (85-104) 04/21/18 05:23 ABG O2 Saturation 98 % (95-98) 04/21/18 05:23 PT/INR, D-dimer PT 23.4 Seconds (9.4-12.1) H 04/21/18 03:35 Abnormal lab findings: Abnormal lab results WBC 11.9 K/mcL (4.3-11.1) H 04/21/18 03:35 RBC 2.53 M/mcL (4.19-5.50) L 04/21/18 03:35 Hgb 7.8 g/dL (12.9-16.9) L 04/21/18 03:35 Hct 23.1 % (37.5-50.1) L 04/21/18 03:35 RDW 15.8 % (11.5-14.5) H 04/21/18 03:35 Plt Count 138 K/mcL (140-400) L 04/21/18 03:35 Neutrophils # 9.6 K/mcL (1.6-8.9) H 04/21/18 03:35 Nucleated RBCs/100 WBC 1.3 /100 WBC (0) H 04/21/18 03:35 PT 23.4 Seconds (9.4-12.1) H 04/21/18 03:35 ABG pH 7.47 pH Units (7.32-7.45) H 04/21/18 05:23 ABG HCO3 28 mEq/L (21-27) H 04/21/18 05:23 ABG Total CO2 29 mEq/L (20-26) H 04/21/18 05:23 ABG Base Excess 4 mEq/L (-2 to 3) H 04/21/18 05:23 BUN 72 mg/dL (8-23) H 04/21/18 03:35 Creatinine 2.71 mg/dL (0.70-1.30) H 04/21/18 03:35 Est GFR ( Amer) 28 (> 60) L 04/21/18 03:35 Est GFR (Non-Af Amer) 23 (> 60) L 04/21/18 03:35 BUN/Creatinine Ratio 27 (6-26) H 04/21/18 03:35 POC Glucose 103 mg/dL (70-99) H 04/21/18 00:51 Calculated Osmolality 307 (280-300) H 04/21/18 03:35 Calcium 7.2 mg/dL (8.6-10.3) L 04/21/18 03:35 Venous Ioniz Calcium 0.86 mmol/L (1.15-1.35) L 04/21/18 03:58 Total Bilirubin 5.9 mg/dL (0.3-1.0) H 04/21/18 03:35 Serum Total Protein 5.8 g/dL (6.4-8.9) L 04/21/18 03:35 Globulin 2.3 g/dL (2.4-3.5) L 04/21/18 03:35 Urine Clarity Cloudy (Clear) A 04/19/18 01:45 Urine Protein 100 mg/dL (Neg-Trace) H 04/19/18 01:45 Urine Blood Large (Negative) H 04/19/18 01:45 Ur Leukocyte Esterase Moderate (Negative) H 04/19/18 01:45 Urine Microscopic RBC 15-30 per hpf (0-3) H 04/19/18 01:45 Urine Microscopic WBC 15-30 per hpf (0-3) H 04/19/18 01:45 Ur Squamous Epith Cells Many per lpf (None-Few) H 04/19/18 01:45 - Clinical Findings Intake & Output: Intake & Output 04/20/18 04/20/18 04/21/18 15:59 23:59 07:59 Intake Total 534 / 534 785 / 785 665 / 665 Output Total 400 / 400 600 / 600 900 / 900 Balance 134 / 134 185 / 185 -235 / -235 Weight 108.7 kg Consult Discharge Plan - Plan Referrals: NONE,PCP [Primary Care Provider] - - Attending Attestation I examined this patient and my medical decision-making was reviewed with the Resident Physician. I agree with the documented findings, disposition and treatment plan as described except to the extent set forth below. We independently had [id number] contact with the patient I spent of Critical Care time with this patient. It involved decision making of high complexity to assess, manipulate, and support vital organ system failure and/or to prevent further life threatening deterioration of the patient' s condition. The time involved in the performance of separately reportable procedures was not counted toward critical care time. Patient seen and examined at bedside Labs, radiology, chart personally reviewed. Management was reviewed during multidisciplinary critical care rounds. 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 Doing well on SBT plan for liberation. Cards:HFpEF cont diuresis. BP stable. GI:GI prophylaxis given Nutrition: NPO for now Renal: Yves improving. Nephrology following. Start Electrolyte protocol. UOP Monitored, Cont to Trend sCr ID: Cont abx with plan to deescalate.WBC has normalized. Heme/Onc: Coagulopathy which will be corrected with Vit K. Also will need f/u H/ H suspect continuation of bleeding until INR corrected. Endo: Glucose Monitored Integ/MSK: Large left subcutaneous hematoma s/t to fall. . Stable in size. kin Care per routine ICU Nursing Protocol to prevent ulcers. Lines: All lines examined without evidence of infection : Dispo: Remain in ICU CODE: DNAR. I spoke with the patient's healthcare power of securities attorney/next of kin his and daughter at bedside in the ICU with the ICU nurse present the patient had expressed that in general terms he did not want aggressive measures and was focusing more on comfort at present his CODE STATUS was DNAR both and daughter were in agreement that with liberation from the ventilator today reintubation should not be attempted and in accordance with the patient's wishes at present he remains mildly delirious and is on medications that can cause sedation/REGULATOR ASSEMBLER depression and would not be considered reliable to make this decision on his own account. We will proceed with liberation from the vent now with a do not reintubate status on loss patient revoked this on his own wishes at a later time when he is considered more medically reliable <Venice Rivers - Last Filed: 04/21/18 13:55> Date of Encounter: 04/21/18 Time of Encounter: 07:04 Assessment and Plan (1) Hematoma Current Visit: Yes Status: Acute On CT from 04/20/18, a left flank superficial hematoma measuring 24x7.6x25cm was demonstrated that shows no evidence of fracture or organ injury. No concern for retroperitoneal bleeding at this time. Correct coagulopathy and continue to monitor. (2) Acute respiratory failure with hypoxia Current Visit: Yes Status: Acute Patient was intubated at outside facility for failing to maintain saturation and inability to protect airway. Patient has maintained saturation with acceptable blood gasses on CPAP. Will plan for extubation and o2 by NC as necessary to maintain comfort and saturation. (3) Anemia Current Visit: Yes Status: Acute Hh at presentation to [facility] was 5.5, here was 8.7, although has trended down to 7.8 this morning. INR still elevated at 2.1 with PT of 23.4, plan to continue to correct coagulopathy and assess need for transfusion once coagulopathy has been corrected. Qualifiers: Anemia type: other cause Other causes of anemia: other cause, not classified Qualified Code(s): D64.89 - Other specified anemias (4) Atrial fibrillation Current Visit: Yes Status: Chronic Hold anticoagulation for now while coagulopathic. Qualifiers: Atrial fibrillation type: chronic Qualified Code(s): I48.2 - Chronic atrial fibrillation (5) Acute renal failure Current Visit: Yes Status: Acute Cr at presentation was 3.05, now down to 2.65. Gentle hydration, renally dose medications. Qualifiers: Acute renal failure type: unspecified Qualified Code(s): N17.9 - Acute kidney failure, unspecified (6) Acute on chronic diastolic congestive heart failure Current Visit: Yes Status: Acute Continue Furosemide 80mg IVP BID and monitor clinical status. (7) DVT prophylaxis Current Visit: Yes Status: Acute (8) Peripheral edema Current Visit: Yes Status: Chronic Likely secondary to acute renal failure. Continue to monitor clinical status, continue diuresis, and monitor. (9) Coagulopathy Current Visit: Yes Status: Acute Monitor coagulation studies and continue to assess need for transfusion to correct INR/PT. 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 He was transferred here from [facility] after intubation for inability to protect airway and maintain saturation secondary to acute on chronic diastolic CHF. Before admission to [facility], there was an incident with his manual lift system at home and he sustained an injury to his left flank which resulted in immediate pain and bruising. He had a Hg of 5.5 on presentation to [facility], was hypotensive, had YVES, hyperkalemia, INR of 18 , and seizure exacerbation. He was infused with 2u PRBCs, given Vitamin K and FFP, and started on a norepi drip. At midnight on 04/17/18 he developed worsening confusion, SOB, and worsening ABG so was intubated and transferred to [facility]. On presentation here, his H&H was 8.7 & 25.2 with INR of 3.3 and PT of 36.8. While H&H continued to decline, PT/INR has continued to improve. Yesterday , he was transfused with 1 unit PRBCs and 4 units of FFP and numbers improved to 23.4/2.1. Plan is to continue correcting coagulopathy and monitor need for further transfusions. CT performed yesterday shows a large, but superficial hematoma, without retroperitoneal bleeding, and without evidence of fracture or organ injury. The ICU forensic science technician spoke with the family and they decided to change his code status to DNR/CC/DNI. CPAP trial was started this morning at 0552 and he has been tolerating this well, with plan to transition to nasal cannula. Objective PUL Vital signs: Last Vital Signs Temp 97.7 F 04/21/18 04:32 Pulse 85 04/21/18 06:00 Resp 20 04/21/18 06:00 BP 135/86 04/21/18 06:00 Pulse Ox 100 04/21/18 06:00 General appearance: asleep, other (sedated, but arousable and will follow commands) Eyes: nonicteric ENT: oropharynx dry Effort: normal Auscultation: bilateral: clear Cardiovascular: irregular rhythm Gastrointestinal: normoactive bowel sounds Integumentary: other (bruising over left arm) Extremities: edema (1+ cristela LE pitting edema) unable to assess due to mental status Ventilator Settings Ventilator Settings: Ventilator Settings, Last 8 Hours Ventilator Tidal Volume 500 Setting Ventilator Tidal Volume 480 Setting Ventilator Tidal Volume 500 Setting Ventilator Tidal Volume 480 Setting Ventilator Tidal Volume 500 Setting Ventilator Tidal Volume 500 Setting Ventilator Tidal Volume 500 Setting Ventilator Tidal Volume 480 Setting Ventilator Tidal Volume 500 Setting Ventilator Respiratory Rate 12 Setting Ventilator Respiratory Rate 12 Setting Ventilator Respiratory Rate 12 Setting Ventilator Respiratory Rate 12 Setting Ventilator Respiratory Rate 12 Setting Ventilator Respiratory Rate 12 Setting Ventilator Respiratory Rate 12 Setting Ventilator Respiratory Rate 12 Setting Ventilator Respiratory Rate 12 Setting Actual Respiratory Rate 20 Actual Respiratory Rate 20 Actual Respiratory Rate 12 Actual Respiratory Rate 17 Actual Respiratory Rate 12 Actual Respiratory Rate 12 Actual Respiratory Rate 12 Actual Respiratory Rate 21 Actual Respiratory Rate 12 Positive End Expiratory 5 Pressure Positive End Expiratory 5 Pressure Positive End Expiratory 5 Pressure Positive End Expiratory 5 Pressure Positive End Expiratory 5 Pressure Positive End Expiratory 5 Pressure Positive End Expiratory 5 Pressure Positive End Expiratory 5 Pressure Positive End Expiratory 5 Pressure Positive End Expiratory 5 Pressure Peak Inspiratory Airway 11 Pressure Peak Inspiratory Airway 10 Pressure Peak Inspiratory Airway 20 Pressure Peak Inspiratory Airway 21 Pressure Peak Inspiratory Airway 20 Pressure Peak Inspiratory Airway 20 Pressure Peak Inspiratory Airway 20 Pressure Peak Inspiratory Airway 21 Pressure Peak Inspiratory Airway 20 Pressure Results - Laboratory Findings CBC and BMP: 04/21/18 12:45 04/21/18 03:35 ABG ABG pH 7.47 pH Units (7.32-7.45) H 04/21/18 05:23 ABG pCO2 38 mmHg (35-45) 04/21/18 05:23 ABG pO2 100 mmHg (85-104) 04/21/18 05:23 ABG O2 Saturation 98 % (95-98) 04/21/18 05:23 PT/INR, D-dimer PT 23.4 Seconds (9.4-12.1) H 04/21/18 03:35 Abnormal lab findings: Abnormal lab results WBC 11.9 K/mcL (4.3-11.1) H 04/21/18 03:35 RBC 2.53 M/mcL (4.19-5.50) L 04/21/18 03:35 Hgb 7.8 g/dL (12.9-16.9) L 04/21/18 03:35 Hct 23.1 % (37.5-50.1) L 04/21/18 03:35 RDW 15.8 % (11.5-14.5) H 04/21/18 03:35 Plt Count 138 K/mcL (140-400) L 04/21/18 03:35 Neutrophils # 9.6 K/mcL (1.6-8.9) H 04/21/18 03:35 Nucleated RBCs/100 WBC 1.3 /100 WBC (0) H 04/21/18 03:35 PT 23.4 Seconds (9.4-12.1) H 04/21/18 03:35 ABG pH 7.47 pH Units (7.32-7.45) H 04/21/18 05:23 ABG HCO3 28 mEq/L (21-27) H 04/21/18 05:23 ABG Total CO2 29 mEq/L (20-26) H 04/21/18 05:23 ABG Base Excess 4 mEq/L (-2 to 3) H 04/21/18 05:23 BUN 72 mg/dL (8-23) H 04/21/18 03:35 Creatinine 2.71 mg/dL (0.70-1.30) H 04/21/18 03:35 Est GFR ( Amer) 28 (> 60) L 04/21/18 03:35 Est GFR (Non-Af Amer) 23 (> 60) L 04/21/18 03:35 BUN/Creatinine Ratio 27 (6-26) H 04/21/18 03:35 POC Glucose 103 mg/dL (70-99) H 04/21/18 00:51 Calculated Osmolality 307 (280-300) H 04/21/18 03:35 Calcium 7.2 mg/dL (8.6-10.3) L 04/21/18 03:35 Venous Ioniz Calcium 0.86 mmol/L (1.15-1.35) L 04/21/18 03:58 Total Bilirubin 5.9 mg/dL (0.3-1.0) H 04/21/18 03:35 Serum Total Protein 5.8 g/dL (6.4-8.9) L 04/21/18 03:35 Globulin 2.3 g/dL (2.4-3.5) L 04/21/18 03:35 Urine Clarity Cloudy (Clear) A 04/19/18 01:45 Urine Protein 100 mg/dL (Neg-Trace) H 04/19/18 01:45 Urine Blood Large (Negative) H 04/19/18 01:45 Ur Leukocyte Esterase Moderate (Negative) H 04/19/18 01:45 Urine Microscopic RBC 15-30 per hpf (0-3) H 04/19/18 01:45 Urine Microscopic WBC 15-30 per hpf (0-3) H 04/19/18 01:45 Ur Squamous Epith Cells Many per lpf (None-Few) H 04/19/18 01:45 - Diagnostic Findings Chest x-ray: report reviewed, image reviewed CT scan - chest: report reviewed, image reviewed - Clinical Findings Intake & Output: Intake & Output 04/20/18 04/20/18 04/21/18 15:59 23:59 07:59 Intake Total 534 / 534 785 / 785 665 / 665 Output Total 400 / 400 600 / 600 900 / 900 Balance 134 / 134 185 / 185 -235 / -235 Weight 108.7 kg - VTE Documentation of Mechanical Device: Intermittent pneumatic compression device
[2018-04-21] MEDS ORDERED: *HR* Phytonadione 10 MG/ML AMPUL SQ ONE (07:38)
[2018-04-21] MEDS: Furosemide 40 MG/4 ML VIAL IVP SCH ×2 (07:53→20:23)
[2018-04-21] MEDS: Chlorhexidine Rinse 15 ML MOUTHWASH MM SCH ×2 (07:53→20:23)
--- NOTE | 2018-04-21 11:53 | Nephrology Progress Note ---
Date of Encounter: 04/21/18 Time of Encounter: 09:20 - Assessment and Plan (1) YVSE (acute kidney injury) Current Visit: Yes Status: Acute Slightly improved SCr: YVES in the setting of sepsis, and multiorgan dysfunction including elevated LFTs and acute respiratory failure. Peripheral edema: recommend continuing the Lasix 80mg IV BID with albumin strategy. He appears to be tolerating more conservative approach, and hearing today that his original wishes are DNR-CC, then dialysis likely would not be a therapeutic option for him. Hypomagnesemia: repleted and improved. Monitor serum K+ while on diuretics. Hypocalcemia: replete with electrolyte replacement protocol. Recommended to the ICU to add the Electrolyte Replacement protocol. Anemia: he has a large hematoma and his H/H is falling. Transfusion parameters as per primary. His bed was too large, per report, to fit in the CT room yesterday. His CK was WNL. Discussed in detail with the ICU team. Follow a renal protective strategy as able, so as to help / aid with any potential renal recovery including dosing renally cleared Rx by CrCl, avoidance of nephrotoxins as able, etc My colleague Dr. Castellon will be on-call tomorrow. Thank you. (2) Peripheral edema Current Visit: Yes Status: Chronic See above. (3) Elevated LFTs Current Visit: Yes Status: Acute (4) Hypocalcemia Current Visit: Yes Status: Acute See above (5) Anemia Current Visit: Yes Status: Acute Transfusion parameters as per primary. Qualifiers: Anemia type: other cause Other causes of anemia: other cause, not classified Qualified Code(s): D64.89 - Other specified anemias (6) Acute on chronic diastolic congestive heart failure Current Visit: Yes Status: Acute As per primary. (7) Hypomagnesemia Current Visit: Yes Status: Acute See above. Improved. Continue monitoring while on diuretics. Subjective Principal diagnosis: Acute respiratory failure, sepsis, YVES Interval history: Pt was s/e. He remains intubated / sedated thus limiting this Subjective portion of the note. The MAKEUP SALES ADVISOR reported improving respiratory parameters on the vent and that his family has actually been requesting DNR - CC. Objective - Vital Signs Vital signs: Vital Signs Temp Pulse Resp BP Pulse Ox 04/21/18 11:23 16 108/61 100 04/21/18 11:00 68 15 108/61 100 04/21/18 10:00 65 16 97/60 100 04/21/18 09:05 17 102/68 99 04/21/18 09:00 80 17 102/68 100 04/21/18 08:00 79 16 125/79 99 04/21/18 07:48 17 136/75 96 04/21/18 07:00 98.6 F 87 04/21/18 06:00 85 20 135/86 100 04/21/18 05:53 16 113/76 98 04/21/18 05:00 80 15 119/76 100 04/21/18 04:32 97.7 F 04/21/18 04:00 91 16 108/74 100 04/21/18 03:06 12 105/72 96 04/21/18 03:00 97.7 F 74 12 103/69 100 04/21/18 02:00 72 13 120/68 98 04/21/18 01:00 78 13 105/52 100 04/21/18 00:59 97.5 F L 80 12 100 04/21/18 00:56 97.7 F 04/21/18 00:11 20 102/59 99 04/21/18 00:00 70 12 99/64 100 04/20/18 23:30 97.5 F L 84 12 100/61 95 04/20/18 23:00 66 14 102/59 100 04/20/18 22:03 97.5 F L 69 12 94/60 100 04/20/18 22:00 67 12 102/67 100 04/20/18 21:48 97.7 F 73 12 98/64 100 04/20/18 21:04 13 105/67 100 04/20/18 21:00 66 12 105/67 100 04/20/18 20:45 97.5 F L 66 12 104/66 100 04/20/18 20:23 97.5 F L 04/20/18 20:00 80 16 102/67 100 04/20/18 19:32 14 104/66 100 04/20/18 19:00 76 16 104/66 100 04/20/18 18:08 12 101/63 100 04/20/18 18:00 64 12 101/62 100 04/20/18 17:54 97.5 F L 64 12 101/63 100 04/20/18 17:38 97.3 F L 68 12 108/73 100 04/20/18 17:00 58 12 95/63 100 04/20/18 16:01 97.2 F L 04/20/18 16:00 64 12 87/51 100 04/20/18 15:15 12 87/51 100 04/20/18 15:10 97.2 F L 64 04/20/18 15:00 98.2 F 75 12 91/56 100 04/20/18 14:44 98.1 F 04/20/18 13:14 12 91/63 100 04/20/18 13:11 98.4 F 62 12 91/63 04/20/18 13:00 65 12 93/59 100 04/20/18 12:56 98.3 F 65 12 93/59 04/20/18 12:00 76 12 94/65 99 Intake and Output 04/20/18 04/21/18 04/21/18 23:59 07:59 15:59 Intake Total 785 / 785 865 / 865 0 / 0 Output Total 600 / 600 1300 / 1300 Balance 185 / 185 -435 / -435 0 / 0 Intake: IV Fluids 235 / 235 265 / 265 FentaNYL (PF) 1,000 MCG In 0.9 35 / 35 65 / 65 % Sodium Chloride 80 ML @ 50 MCG/HR 5 mls/hr IVC CONT JOHNY Rx #:[id number] Flexbumin 25 gm In 100 ml @ 60 100 / 100 100 / 100 mls/hr IVPB Q12HR JOHNY Rx#: [id number] Zosyn 3.375 GM In 0.9 % Sodium 100 / 100 100 / 100 Chloride (Mini-Bag +) 100 ML @ 25 mls/hr IVPB Q12H JOHNY Rx#: [id number] Oral 0 / 0 Blood Product 550 / 550 600 / 600 Plasma Unit [id number] 250 / 250 Plasma Unit [id number] 0 / 0 300 / 300 Plasma Unit [id number] 300 / 300 Rbcs Leuko Poor As-1 Unit 300 / 300 [id number] Output: Catheter 600 / 600 1300 / 1300 Other: Weight 108.7 kg Blood Glucose* 106 103 Patient Weight 04/21/18 23:59 Weight 108.7 kg - General Appearance Exam: General appearance: obese, sedated on ventilator, intubated EENT: ATNC, PERRL, mucous membranes moist Neck: supple Respiratory: course breath sounds Cardiology: trace to 1+ edema, regular rate, regular rhythm, normal S1, normal S2 Gastrointestinal: normoactive bowel sounds, no tenderness Integumentary: no rash, warm and dry Neurologic: no asterixis Additional Comments: Intubated/sedated Musculoskeletal: no cyanosis, no clubbing - Lab 04/21/18 03:35 04/21/18 03:35 Most recent lab results ABG pH 7.47 pH Units (7.32-7.45) H 04/21/18 05:23 ABG pCO2 38 mmHg (35-45) 04/21/18 05:23 ABG pO2 100 mmHg (85-104) 04/21/18 05:23 ABG HCO3 28 mEq/L (21-27) H 04/21/18 05:23 ABG O2 Saturation 98 % (95-98) 04/21/18 05:23 Calcium 7.2 mg/dL (8.6-10.3) L 04/21/18 03:35 Phosphorus 3.4 mg/dL (2.7-4.5) 04/21/18 03:35 Magnesium 1.8 mg/dL (1.6-2.6) 04/21/18 03:35 - VTE Documentation of Mechanical Device: Intermittent pneumatic compression device Consult Discharge Plan - Plan Referrals: NONE,PCP [Primary Care Provider] -
[2018-04-21 13:07] LABS: Basophils % 0.2 %; Eosinophils # 0.3 K/mcL (0.0-0.6); Eosinophils % 2.7 %; Hematocrit 23.7 % (37.5-50.1); Hemoglobin 7.8 g/dL (12.9-16.9); Immature Granulocytes % 2.5 % (0-4); Lymphocytes # 0.8 K/mcL (0.6-4.6); Lymphocytes % 6.5 %; Mean Corpuscular HGB Conc 32.9 g/dL (31.6-35.5); Mean Corpuscular Volume 91.2 fL (83.0-100.0); Mean Platelet Volume 9.9 fL (9.4-12.4); Monocytes # 1.1 K/mcL (0.0-1.3); Monocytes % 8.9 %; Neutrophils # 9.8 K/mcL (1.6-8.9); Nucleated Red Blood Cells 1.1 /100 WBC (0); Platelet Count 147 K/mcL (140-400); Red Cell Distribution Width 16.1 % (11.5-14.5); Segmented Neutrophils % 79.2 %
[2018-04-21 13:25] LABS: Calcium 7.4 mg/dL (8.6-10.3); Potassium 3.4 mEq/L (3.5-5.1)
[2018-04-21] MEDS: Nystatin Cream 15 GM TUBE TP SCH ×2 (13:46→20:25)
[2018-04-21] MEDS ORDERED: Acetaminophen 325 MG TABLET PO ONE (15:44)
[2018-04-22] MEDS: Artificial Tears SOLN 15 ML BOTTLE BOTH EYES SCH ×2 (04:22→08:39)
[2018-04-22] MEDS: Albumin 25% 25gram/100mL 25 GM/100 ML IV.SOLN IVPB SCH (05:00)
[2018-04-22] MEDS: Pantoprazole 40 MG VIAL IVP SCH ×2 (05:00→17:16)
[2018-04-22 05:15] LABS: VBG Ionized Calcium 0.86 mmol/L (1.15-1.35)
[2018-04-22 05:17] LABS: Basophils % 0.2 %; Eosinophils # 0.4 K/mcL (0.0-0.6); Hematocrit 26.4 % (37.5-50.1); Hemoglobin 8.9 g/dL (12.9-16.9); Immature Granulocytes % 4.4 % (0-4); Lymphocytes # 0.9 K/mcL (0.6-4.6); Lymphocytes % 6.7 %; Mean Corpuscular HGB Conc 33.7 g/dL (31.6-35.5); Mean Platelet Volume 9.9 fL (9.4-12.4); Monocytes # 1.3 K/mcL (0.0-1.3); Monocytes % 10.3 %; Neutrophils # 9.7 K/mcL (1.6-8.9); Nucleated Red Blood Cells 0.6 /100 WBC (0); Platelet Count 181 K/mcL (140-400); Red Blood Count 2.87 M/mcL (4.19-5.50); Red Cell Distribution Width 16.1 % (11.5-14.5); Segmented Neutrophils % 75.4 %
[2018-04-22 05:20] LABS: Prothrombin Time 22.7 Seconds (9.4-12.1)
[2018-04-22 05:34] LABS: Albumin 3.6 g/dL (3.5-5.7); Albumin/Globulin Ratio 1.6 (1.1-2.2); Bilirubin,Total 7.2 mg/dL (0.3-1.0); Calcium 7.5 mg/dL (8.6-10.3); Globulin 2.3 g/dL (2.4-3.5); Magnesium 1.6 mg/dL (1.6-2.6); Phosphorous 2.8 mg/dL (2.7-4.5); Potassium 3.2 mEq/L (3.5-5.1); Total Protein 5.9 g/dL (6.4-8.9)
[2018-04-22] MEDS: Potassium Chloride 40 MEQ/200 ML BAG IVPB PRN ×2 (06:22→08:40)
--- NOTE | 2018-04-22 07:24 | Pulmonology Progress Note ---
<TashiDharmesh W - Last Filed: 04/22/18 09:22> Date of Encounter: 04/22/18 Objective PUL Vital signs: Last Vital Signs Temp 97.6 F 04/22/18 07:10 Pulse 93 04/22/18 06:00 Resp 12 04/22/18 06:00 BP 132/62 04/22/18 06:00 Pulse Ox 100 04/22/18 06:00 Results - Laboratory Findings CBC and BMP: 04/22/18 05:00 04/22/18 05:00 ABG ABG pH 7.47 pH Units (7.32-7.45) H 04/21/18 05:23 ABG pCO2 38 mmHg (35-45) 04/21/18 05:23 ABG pO2 100 mmHg (85-104) 04/21/18 05:23 ABG O2 Saturation 98 % (95-98) 04/21/18 05:23 PT/INR, D-dimer PT 22.7 Seconds (9.4-12.1) H 04/22/18 05:00 Abnormal lab findings: Abnormal lab results WBC 12.9 K/mcL (4.3-11.1) H 04/22/18 05:00 RBC 2.87 M/mcL (4.19-5.50) L 04/22/18 05:00 Hgb 8.9 g/dL (12.9-16.9) L 04/22/18 05:00 Hct 26.4 % (37.5-50.1) L 04/22/18 05:00 RDW 16.1 % (11.5-14.5) H 04/22/18 05:00 Immature Gran % 4.4 % (0-4) H 04/22/18 05:00 Neutrophils # 9.7 K/mcL (1.6-8.9) H 04/22/18 05:00 Nucleated RBCs/100 WBC 0.6 /100 WBC (0) H 04/22/18 05:00 PT 22.7 Seconds (9.4-12.1) H 04/22/18 05:00 ABG pH 7.47 pH Units (7.32-7.45) H 04/21/18 05:23 ABG HCO3 28 mEq/L (21-27) H 04/21/18 05:23 ABG Total CO2 29 mEq/L (20-26) H 04/21/18 05:23 ABG Base Excess 4 mEq/L (-2 to 3) H 04/21/18 05:23 Potassium 3.2 mEq/L (3.5-5.1) L 04/22/18 05:00 Chloride 97 mEq/L (98-107) L 04/22/18 05:00 BUN 71 mg/dL (8-23) H 04/22/18 05:00 Creatinine 2.36 mg/dL (0.70-1.30) H 04/22/18 05:00 Est GFR ( Amer) 33 (> 60) L 04/22/18 05:00 Est GFR (Non-Af Amer) 27 (> 60) L 04/22/18 05:00 BUN/Creatinine Ratio 30 (6-26) H 04/22/18 05:00 POC Glucose 108 mg/dL (70-99) H 04/22/18 00:13 Calculated Osmolality 309 (280-300) H 04/22/18 05:00 Calcium 7.5 mg/dL (8.6-10.3) L 04/22/18 05:00 Venous Ioniz Calcium 0.86 mmol/L (1.15-1.35) L 04/22/18 05:13 Total Bilirubin 7.2 mg/dL (0.3-1.0) H 04/22/18 05:00 Serum Total Protein 5.9 g/dL (6.4-8.9) L 04/22/18 05:00 Globulin 2.3 g/dL (2.4-3.5) L 04/22/18 05:00 Urine Clarity Cloudy (Clear) A 04/19/18 01:45 Urine Protein 100 mg/dL (Neg-Trace) H 04/19/18 01:45 Urine Blood Large (Negative) H 04/19/18 01:45 Ur Leukocyte Esterase Moderate (Negative) H 04/19/18 01:45 Urine Microscopic RBC 15-30 per hpf (0-3) H 04/19/18 01:45 Urine Microscopic WBC 15-30 per hpf (0-3) H 04/19/18 01:45 Ur Squamous Epith Cells Many per lpf (None-Few) H 04/19/18 01:45 - Clinical Findings Intake & Output: Intake & Output 04/21/18 04/22/18 04/22/18 23:59 07:59 15:59 Intake Total 300 / 300 210 / 210 100 / 100 Output Total 600 / 600 2550 / 2550 Balance -300 / -300 -2340 / -2340 100 / 100 Weight 107.8 kg Consult Discharge Plan - Plan Referrals: NONE,PCP [Primary Care Provider] - - Attending Attestation I examined this patient and my medical decision-making was reviewed with the Resident Physician. I agree with the documented findings, disposition and treatment plan as described except to the extent set forth below. We independently had [id number] contact with the patient Patient seen and examined at bedside Labs, radiology, chart personally reviewed. Management was reviewed during multidisciplinary critical care rounds. DATA ANALYST: The patient is fully awake and alert he is able to make jokes today he moves his upper extremities without focal deficit he has chronic paraplegia of the lower extremities Pulm: Acceptable oxygenation on nasal cannula O2 status post extubation yesterday Cards: Blood pressure stable continue diuretic for HFpEF . Holding anticoagulation for atrial fibrillation rate is controlled GI: No active issues Nutrition: Advance diet as tolerated after speech/swallow evaluation Renal: UOP Monitored, Cont to Trend sCr and monitor Electrolytes. ID: Antibiotics stop continue to monitor Heme/Onc: H&H stable overnight improving subcutaneous hematoma on the left INR is 2.0 status post vitamin K administration yesterday given clinical stability I will not give additional doses of vitamin K at this time nor would I restart warfarin because of the indication of atrial fibrillation pending further clinical stability Endo: Glucose Monitored Integ/MSK: Skin Care per routine ICU Nursing Protocol to prevent ulcers. Lines: All lines examined without evidence of infection : Dispo: [facility] report called to Dr. Bullock the admitting hospitalist who kindly accepted the patient in transfer CODE: The DNAR/DNI formal palliative care consultation today to address goals of care <Radha Atwood E - Last Filed: 04/22/18 10:56> Date of Encounter: 04/22/18 Time of Encounter: 07:26 Assessment and Plan (1) Acute respiratory failure with hypoxia Current Visit: Yes Status: Acute PAtient presented intubated by outside facility for failing to maintain saturation and inability to protect his airway. Patient was extubated yesterday and is on O2 by nasal canula to maintain comfort and oxygen saturation (2) Acute on chronic diastolic congestive heart failure Current Visit: Yes Status: Acute Continue furosemide 80 mg IVP BID- decrease to 40 BID Continue Albumin 25 gm in 100 mls @ 60 mls/hr IVPB Q12 scheduled is discontinued at this time Continue to monitor clinical status (3) Acute renal failure Current Visit: Yes Status: Acute YVES is improving, Creatinine today 2.36 decreased from 2.65 Continue gentle hydration and renally dosed medications. Qualifiers: Acute renal failure type: unspecified Qualified Code(s): N17.9 - Acute kidney failure, unspecified (4) Anemia Current Visit: Yes Status: Acute Patients Hgb was 5.5 at admission to [facility], upon transfer here it was 8.7. Fell to 7.8 yesterday. Today his hgb is 8.9. Pt/INR on admission was 36.8/3.3 today is 22.7/2.0 after correction. Will continue to monitor Hgb/Hct and continue to access for need for future need of transfusion Qualifiers: Anemia type: other cause Other causes of anemia: other cause, not classified Qualified Code(s): D64.89 - Other specified anemias (5) Atrial fibrillation Current Visit: Yes Status: Chronic Hold anticoagulation for now while coagulopathic Qualifiers: Atrial fibrillation type: chronic Qualified Code(s): I48.2 - Chronic atrial fibrillation (6) Coagulopathy Current Visit: Yes Status: Acute Monitor coagulation studies and continue to assess need for transfusion to correct PT/INR (7) Hematoma Current Visit: Yes Status: Acute CT 04/20/18 showed left flank hematoma with no evidence of fracture or organ injury No concern for retroperitoneal bleeding at this time Correct coagulopathy and continue to monitor (8) Peripheral edema Current Visit: Yes Status: Chronic Likely secondary to acute renal failure. 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 He was transferred here from [facility] after intubation for inability to protect airway and maintain saturation secondary to acute on chronic diastolic CHF. Before admission to [facility], there was an incident with his manual lift system at home and he sustained an injury to his left flank which resulted in immediate pain and bruising. He had a Hg of 5.5 on presentation to [facility], was hypotensive, had YVES, hyperkalemia, INR of 18 , and seizure exacerbation. He was infused with 2u PRBCs, given Vitamin K and FFP, and started on a norepi drip. At midnight on 04/17/18 he developed worsening confusion, SOB, and worsening ABG so was intubated and transferred to [facility]. On presentation here, his H&H was 8.7 & 25.2 with INR of 3.3 and PT of 36.8. While H&H continued to decline, PT/INR has continued to improve. 04/20/18 he was transfused with 1 unit PRBCs and 4 units of FFP and numbers improved to 23.4/2.1. Plan is to continue correcting coagulopathy and monitor need for further transfusions. Hgb/HCT is 8.9/26.[address] performed shows a large, but superficial hematoma, without retroperitoneal bleeding, and without evidence of fracture or organ injury. Patients code status changed to DNR/CC/DNI on 04/21/18. When examined today patient was on room oxygen with no breathlessness. Has been satrating at 100% on 2L by nasal cannula. Objective PUL Vital signs: Last Vital Signs Temp 97.7 F 04/22/18 04:31 Pulse 93 04/22/18 06:00 Resp 12 04/22/18 06:00 BP 132/62 04/22/18 06:00 Pulse Ox 100 04/22/18 06:00 General appearance: no acute distress Eyes: nonicteric ENT: oropharynx moist Neck: no lymphadenopathy Effort: normal Auscultation: bilateral: clear Cardiovascular: irregular rhythm, other (regular rate) Gastrointestinal: normoactive bowel sounds, soft, tender Integumentary: other (bruising over left flank and left arm) Extremities: no cyanosis, edema (1+ Bilateral Pitting Edema at the feet) pupils equal and round, other (motor strength in both upper extremities normal, lower extremities unable to access due to parapalegia. ) mood appropriate Results - Laboratory Findings CBC and BMP: 04/22/18 05:00 04/22/18 05:00 ABG ABG pH 7.47 pH Units (7.32-7.45) H 04/21/18 05:23 ABG pCO2 38 mmHg (35-45) 04/21/18 05:23 ABG pO2 100 mmHg (85-104) 04/21/18 05:23 ABG O2 Saturation 98 % (95-98) 04/21/18 05:23 PT/INR, D-dimer PT 22.7 Seconds (9.4-12.1) H 04/22/18 05:00 Abnormal lab findings: Abnormal lab results WBC 12.9 K/mcL (4.3-11.1) H 04/22/18 05:00 RBC 2.87 M/mcL (4.19-5.50) L 04/22/18 05:00 Hgb 8.9 g/dL (12.9-16.9) L 04/22/18 05:00 Hct 26.4 % (37.5-50.1) L 04/22/18 05:00 RDW 16.1 % (11.5-14.5) H 04/22/18 05:00 Immature Gran % 4.4 % (0-4) H 04/22/18 05:00 Neutrophils # 9.7 K/mcL (1.6-8.9) H 04/22/18 05:00 Nucleated RBCs/100 WBC 0.6 /100 WBC (0) H 04/22/18 05:00 PT 22.7 Seconds (9.4-12.1) H 04/22/18 05:00 ABG pH 7.47 pH Units (7.32-7.45) H 04/21/18 05:23 ABG HCO3 28 mEq/L (21-27) H 04/21/18 05:23 ABG Total CO2 29 mEq/L (20-26) H 04/21/18 05:23 ABG Base Excess 4 mEq/L (-2 to 3) H 04/21/18 05:23 Potassium 3.2 mEq/L (3.5-5.1) L 04/22/18 05:00 Chloride 97 mEq/L (98-107) L 04/22/18 05:00 BUN 71 mg/dL (8-23) H 04/22/18 05:00 Creatinine 2.36 mg/dL (0.70-1.30) H 04/22/18 05:00 Est GFR ( Amer) 33 (> 60) L 04/22/18 05:00 Est GFR (Non-Af Amer) 27 (> 60) L 04/22/18 05:00 BUN/Creatinine Ratio 30 (6-26) H 04/22/18 05:00 POC Glucose 108 mg/dL (70-99) H 04/22/18 00:13 Calculated Osmolality 309 (280-300) H 04/22/18 05:00 Calcium 7.5 mg/dL (8.6-10.3) L 04/22/18 05:00 Venous Ioniz Calcium 0.86 mmol/L (1.15-1.35) L 04/22/18 05:13 Total Bilirubin 7.2 mg/dL (0.3-1.0) H 04/22/18 05:00 Serum Total Protein 5.9 g/dL (6.4-8.9) L 04/22/18 05:00 Globulin 2.3 g/dL (2.4-3.5) L 04/22/18 05:00 Urine Clarity Cloudy (Clear) A 04/19/18 01:45 Urine Protein 100 mg/dL (Neg-Trace) H 04/19/18 01:45 Urine Blood Large (Negative) H 04/19/18 01:45 Ur Leukocyte Esterase Moderate (Negative) H 04/19/18 01:45 Urine Microscopic RBC 15-30 per hpf (0-3) H 04/19/18 01:45 Urine Microscopic WBC 15-30 per hpf (0-3) H 04/19/18 01:45 Ur Squamous Epith Cells Many per lpf (None-Few) H 04/19/18 01:45 - Clinical Findings Intake & Output: Intake & Output 04/21/18 04/21/18 04/22/18 15:59 23:59 07:59 Intake Total 45 / 45 300 / 300 210 / 210 Output Total 1025 / 1025 600 / 600 1750 / 1750 Balance -980 / -980 -300 / -300 -1540 / -1540 Weight 107.8 kg - VTE Documentation of Mechanical Device: Intermittent pneumatic compression device
[2018-04-22] MEDS ORDERED: Furosemide 40 MG/4 ML VIAL IVP SCH ×2 (08:00→20:00)
[2018-04-22] MEDS: Chlorhexidine Rinse 15 ML MOUTHWASH MM SCH (08:38)
[2018-04-22] MEDS: Nystatin Cream 15 GM TUBE TP SCH ×2 (08:38→20:24)
[2018-04-22] MEDS ORDERED: Potassium Chloride 40 MEQ/200 ML BAG IVPB PRN (10:21)
--- NOTE | 2018-04-22 10:33 | Nephrology Progress Note ---
Date of Encounter: 04/22/18 Time of Encounter: 10:20 - Assessment and Plan (1) YVES (acute kidney injury) Current Visit: Yes Status: Acute SCr improving at 2.36, GFR 27, continue current management Continue to avoid nephrotoxins if possible (2) Anemia Current Visit: Yes Status: Acute Hgb noted at 8.9, will monitor Qualifiers: Anemia type: other cause Other causes of anemia: other cause, not classified Qualified Code(s): D64.89 - Other specified anemias (3) Acute on chronic diastolic congestive heart failure Current Visit: Yes Status: Acute Continue current diuretic regimen Continue strict I/Os (4) Elevated LFTs Current Visit: Yes Status: Acute (5) Hypocalcemia Current Visit: Yes Status: Acute Continue repletions prn (6) Hypokalemia Current Visit: Yes Status: Acute Continue repletion prn (7) Peripheral edema Current Visit: Yes Status: Chronic (8) Hypomagnesemia Current Visit: Yes Status: Acute Magnesium noted at 1.6, continue repletions prn Subjective Principal diagnosis: Acute respiratory failure, sepsis, YVES Interval history: Interim events noted, pt seen and examined Objective - Vital Signs Vital signs: Vital Signs Temp Pulse Resp BP Pulse Ox 04/22/18 08:00 97.6 F 82 18 122/82 99 04/22/18 07:10 97.6 F 04/22/18 07:00 82 04/22/18 06:00 93 12 132/62 100 04/22/18 05:00 99 14 122/51 100 04/22/18 04:31 97.7 F 04/22/18 04:00 90 14 127/70 100 04/22/18 03:00 79 20 129/77 100 04/22/18 02:00 91 15 115/74 100 04/22/18 01:00 73 15 115/66 97 04/22/18 00:42 97.6 F 04/22/18 00:00 86 15 124/81 93 04/21/18 23:00 85 12 129/73 98 04/21/18 22:00 98 17 107/65 94 04/21/18 21:00 81 12 114/75 99 04/21/18 20:29 97.4 F L 04/21/18 20:00 82 16 91/85 97 04/21/18 19:00 87 16 117/75 98 04/21/18 18:00 90 16 110/99 98 04/21/18 17:00 87 14 104/65 99 04/21/18 16:00 85 20 116/97 99 04/21/18 15:00 98.3 F 89 16 124/75 99 04/21/18 14:00 84 18 133/81 100 04/21/18 13:00 75 18 113/76 100 04/21/18 12:00 73 17 137/73 100 04/21/18 11:49 97.5 F L 04/21/18 11:23 16 108/61 100 04/21/18 11:00 68 15 108/61 100 Intake and Output 04/21/18 04/22/18 04/22/18 23:59 07:59 15:59 Intake Total 300 / 300 210 / 210 204 / 204 Output Total 600 / 600 2550 / 2550 Balance -300 / -300 -2340 / -2340 204 / 204 Intake: IV Fluids 300 / 300 210 / 210 204 / 204 Flexbumin 25 gm In 100 ml @ 60 100 / 100 100 / 100 mls/hr IVPB Q12HR JOHNY Rx#: [id number] Calcium Gluconate 1,000 MG In 0 110 / 110 .9 % Sodium Chloride 100 ML @ 220 mls/hr IVPB Q6HR PRN Rx#: [id number] Magnesium Sulfate 2 GM In 0.9 % 104 / 104 Sodium Chloride 100 ML @ 52 mls/hr IVPB Q6H PRN Rx#: [id number] Potassium Chloride 20 mEq/100 200 / 200 100 / 100 mL 40 meq In 200 ml @ 100 mls/ hr IVPB Q1H PRN Rx#:[id number] Output: Catheter 600 / 600 2550 / 2550 Other: Weight 107.8 kg Blood Glucose* 106 108 Patient Weight 04/22/18 23:59 Weight 107.8 kg - Lab 04/22/18 05:00 04/22/18 05:00 Most recent lab results ABG pH 7.47 pH Units (7.32-7.45) H 04/21/18 05:23 ABG pCO2 38 mmHg (35-45) 04/21/18 05:23 ABG pO2 100 mmHg (85-104) 04/21/18 05:23 ABG HCO3 28 mEq/L (21-27) H 04/21/18 05:23 ABG O2 Saturation 98 % (95-98) 04/21/18 05:23 Calcium 7.5 mg/dL (8.6-10.3) L 04/22/18 05:00 Phosphorus 2.8 mg/dL (2.7-4.5) 04/22/18 05:00 Magnesium 1.6 mg/dL (1.6-2.6) 04/22/18 05:00 - VTE Documentation of Mechanical Device: Intermittent pneumatic compression device Consult Discharge Plan - Plan Referrals: NONE,PCP [Primary Care Provider] -
[2018-04-22] MEDS ORDERED: Artificial Tears SOLN 15 ML BOTTLE BOTH EYES SCH (12:00)
--- NOTE | 2018-04-22 13:29 | Palliative - Consult Note ---
Date of Encounter: 04/22/18 Time of Encounter: 11:00 - Assessment and Plan (1) Nerve pain Current Visit: Yes Status: Acute Assessment and plan: Patient reports chronic nerve pain since back surgery. Takes Neurontin on home. Discussed with Dr. Atwood whether to resume as fear of respiratory decline. Dr. Atwood to discuss with Dr. Akins. (2) Goals of care, counseling/discussion Current Visit: Yes Status: Acute Assessment and plan: Conducted meeting initially with patient only. Discussed CODE STATUS and confirmed patient desires to have no further tubes placed and desires to stay home. Offered to return once arrived to further discuss goals of care. At 1300, met with patient and his at bedside. (Temitope Sanchezery [phone]) . Discussed goals of care moving forward. Desire to have assistance in care of bathing and equipment at home upon time of discharge. Discussed CODE STATUS with patient and his . Patient and his decided to change CODE STATUS to DNRCC; desires not further aggressive treatment outside of necessary antibiotics for improvement of status to best he can be prior to discharging home. Patient agreeable to whatever decides. Offered various hospice agencies that may be able to serve patient, family requested [facility] due to ECF placement if should later need respite/GIP stay. Patient's reported will need Bed, Air mattress, Oxygen, and BiPAP for home. Notified [facility] of patient's plans for discharge. Patient plans to discharge home with [facility]. (3) Acute respiratory failure with hypoxia Current Visit: Yes Status: Acute Assessment and plan: Requires continued Oxygen and Bipap. (4) Atrial fibrillation Current Visit: Yes Status: Chronic Assessment and plan: Coumadin dependent. Qualifiers: Atrial fibrillation type: chronic Qualified Code(s): I48.2 - Chronic atrial fibrillation (5) Acute renal failure Current Visit: Yes Status: Acute Assessment and plan: Nephrology consult appreciated. Qualifiers: Acute renal failure type: unspecified Qualified Code(s): N17.9 - Acute kidney failure, unspecified (6) Acute on chronic diastolic congestive heart failure Current Visit: Yes Status: Acute Assessment and plan: LVEF 55%. (7) Back pain Current Visit: Yes Status: Chronic Assessment and plan: Patient reports chronic back pain. Takes Tylenol at home. Will order Tylenol PRN. Qualifiers: Chronicity: unspecified Back pain laterality: unspecified Sciatica presence: unspecified whether sciatica present Qualified Code(s): M54.5 - Low back pain Palliative-CN HPI - Data of Consult Patient: new to practice Consult date: 04/22/18 Requesting Physician: Reg Liang MD Primary Care Provider: PCP NONE - Consult Narrative Palliative Care/Comfort Measures: Palliative care Reason for consult: Goals of care History of present illness: Mr. Calderon is a 72 year old male Arrived to [place] (04/18/18) as a transfer from [facility] post intubation with acute respiratory failure secondary to acute on chronic diastolic congestive heart failure. PMH: Atrial Fibrillation on Coumadin, Paraplegia (failed lumbar spinal fusion surgery), and diastolic CHF. Patient had been admitted to [facility] on with worsening shortness of breath times 5 days. Patient had been lifted into air with manual lift by family and had slipped inside lift without falling ; reported left flank pain and family noted new knot. Over the course of the next 5 days, patient noted to have increased edema, decreased appetite, and worsening confusion; patient was then brought to ED where it was noted that he had a large hematoma to abdominal /flank. Upon arrival Hgb 5.5, hypotensive, YVES , INR of 18, WBC 24, Platelets 294; given 2 unites PRBC, norepinephrine, Vitamin K, FFP, and diuresed with IV Lasix. At approximately midnight on 04/17/18 , patient having increased confusion and dyspnea was intubated and then transferred to [facility]. ECHO completed showing LVEF 50%. X-ray showing: Enlarged cardiac silhouette with small bilateral pleural effusions, left greater than right, and Bibaliar atelectasis. Patient admitted to ICU and medically managed for Acute Respiratory failure with hypoxia, Acute on chronic diastolic CHF, Acute renal failure, Anemia, GI Bleed, and Atrial fibrillation. Hgb/hct 9/26.3. Nephrology consulted; recommend renal protective strategy. CT of abdomen without contrast showin x 7.6 x 25 cm hematoma extending from the mid left back into the left buttock, No intramuscular or intra-abdominal extension; vascular calcifications; Cholelithiasis, No evidence of acute cholecystitis; and Bilateral pleural effusions and consolidation in the lower lobes. CT of chest without contrast showing: Large superficial soft tissue hematoma within the posterior soft tissue starting from midthoracic level extending into the abdominal level; Cardiomegaly, with moderate to large pleural effusions; Superimposed pulmonary opacities; and Chronic pulmonary hypertension with enlarged main pulmonary artery. As of 04/20/18, patient required blood product replacement per nephrology and primary ICU team. Patient remained intubated and poor prognosis documented. Repeat chest x-ray showing Left pleural effusion appears slightly decreased with no substantial change otherwise. Patient extubated on 04/21/18. Repeat chest x-ray showing: The endotracheal tube has been removed; Left central venous line remains in place; Stable cardiac enlargement; and Bibasilar volume loss persists. Patient clinically improving overall, stabilized off of ET. Palliative care consulted for goals of care. Patient resting in bed with eyes open upon arrival for assessment. No family present at initial visit. Patient alert and oriented times 3. Reports chronic back pain, unable to rate on pain scale; describes as an ache. Patient denies anxiety, dyspnea, nausea, vomiting, or constipation. CC: Reg Liang MD Past Med Surg Social Fam HX - Past Medical History Medical history: atrial fibrillation, diabetes, GI bleed, hyperlipidemia, hypertension, TIA Additional medical history: Back pain, blood thinner Psychiatric history: depression - Past Surgical History Surgical History: orthopedic, other - Social History Smoking Status: Never smoker Smokeless Tobacco Status: No Alcohol use: none Drug use: none Medications and Allergies Ascorbic Acid [Vitamin C] 500 mg PO DAILY 04/18/18 [History] Calcium Citrate/Vitamin D2 [Cosmo-Citrate Plus Vitamin D Tab] 2 tab PO DAILY 04/18 [History] Ferrous Sulfate [Iron] 325 mg PO DAILY 04/18/18 [History] Gabapentin [Neurontin] 300 mg PO BID 04/18/18 [History] Insulin Glargine,Hum.rec.anlog [Lantus Solostar] 30 unit SQ DAILY 04/18/18 [ History] Lactobacillus Acidophilus [Acidophilus] 1 cap PO DAILY 04/18/18 [History] Pioglitazone HCl [Actos] 30 mg PO DAILY 04/18/18 [History] Potassium Chloride [Potassium Chloride] 20 mg PO 04/18/18 [History] Pravastatin Sodium [Pravachol] 20 mg PO DAILY 04/18/18 [History] Warfarin [Coumadin] 5 mg PO DAILY 04/18/18 [History] Metformin HCl [Metformin HCl ER] 500 mg PO 04/19/18 [History] 3 Allergy/AdvReac Type Severity Reaction Status Date / Time iodine Allergy Unknown Hives Verified 04/18/18 22:51 - Constitutional Constitutional ROS PAL: decreased appetite, lethargy - Cardiovascular Cardiovascular ROS: dyspnea on exertion, edema, pedal edema, no chest pain - Respiratory Respiratory: dyspnea (on admission; denies at time of assessment.), no cough - Gastrointestinal Gastrointestinal: no abdominal pain, no change in bowel habits, no change in stool character - Musculoskeletal Musculoskeletal ROS IM: back pain - Integumentary ROS Integumentary: unusual bruising - Neurological Neurological ROS: weakness - Psychiatric Psychiatric general PM: change in appetite, confusion (upon admission.) Palliative Care-Exam - Constitutional Vitals: Temp Pulse Resp BP Pulse Ox 97.9 F 86 22 147/76 100 04/22/18 12:00 04/22/18 12:00 04/22/18 12:00 04/22/18 12:00 04/22/18 12:00 General appearance: Present: cooperative, morbidly obese, no acute distress - Head Head Exam: Present: atraumatic, normal inspection - Eye Eye exam: Present: EOMI, normal appearance, PERRL. Absent: nystagmus, periorbital swelling, periorbital tenderness - ENT ENT exam: Present: mucous membranes dry, normal external ear exam - Expanded ENT Exam Mouth Exam: Absent: drooling - Neck Neck exam: Present: full ROM, normal inspection - Respiratory Respiratory exam: Present: rhonchi, wheezes. Absent: accessory muscle use, respiratory distress - Cardiovascular Cardiovascular exam: Present: irregular rhythm, +S1, +S2 - Expanded Cardiovascular Exam Peripheral pulses: 1+: Posterior Tibialis (L), Posterior Tibialis (R), Dorsalis Pedis (L) PM, Dorsalis Pedis (R) PM, 2+: Radial (L), Radial (R) - GI/Abdominal Exam GI/Abdominal exam: Present: firm. Absent: tenderness - Rectal Rectal Exam: Present: deferred - Catheter Type: Urethral (Jennings) - Extremities Exam Extremities exam: Present: pedal edema. Absent: calf tenderness, tenderness - Neurological Exam Neurological exam: Present: alert, oriented X3, strengths equal and symetr throughout. Absent: altered - Expanded Neurological Exam Coma Scale Eye Opening: Spontaneous Coma Scale Motor Response: Obeys Commands Coma Scale Verbal Response: Oriented Coma Scale Total: 15 - Psychiatric Psychiatric exam: Present: normal affect, normal mood - Skin Skin exam: Present: dry. Absent: normal color (bruising noted to abdomen and bilateral forearms.) Internal Medicine - CN: Reslt - Labs CBC & Chem 7: 04/22/18 05:00 04/22/18 05:00 Labs: Short CBC 04/22/18 Range/Units 05:00 WBC 12.9 H (4.3-11.1) K/mcL Hgb 8.9 L (12.9-16.9) g/dL Hct 26.4 L (37.5-50.1) % Plt Count 181 (140-400) K/mcL Neutrophils # 9.7 H (1.6-8.9) K/mcL BMP 04/22/18 05:00 Sodium 139 Potassium 3.2 L Chloride 97 L Carbon Dioxide 26 BUN 71 H Creatinine 2.36 H Glucose 97 Calcium 7.5 L Liver Function 04/22/18 Range/Units 05:00 Total Bilirubin 7.2 H (0.3-1.0) mg/dL AST 24 (13-39) Units/L ALT 35 (7-52) Units/L Alkaline Phosphatase 61 (34-104) Units/L Albumin 3.6 (3.5-5.7) g/dL - ABG Interpretation ABG results: ABG ABG pH 7.47 pH Units (7.32-7.45) H 04/21/18 05:23 ABG pCO2 38 mmHg (35-45) 04/21/18 05:23 ABG pO2 100 mmHg (85-104) 04/21/18 05:23 ABG O2 Saturation 98 % (95-98) 04/21/18 05:23 PT/INR, D-dimer PT 22.7 Seconds (9.4-12.1) H 04/22/18 05:00 - Impressions Impressions Chest X-Ray 04/21/18 13:55 IMPRESSION: Stable chest demonstrating cardiac enlargement with bibasilar volume loss D/ / Sebastian Leslie MD / Sebastian Leslie MD Interpreting Provider: Sebastian Leslie MD Consult Discharge Plan - Plan Referrals: NONE,PCP [Primary Care Provider] - Palliative Quality Palliative Quality: Screen for Code Status: Yes, Screen for Goals of Care: Yes, Screen for Pain: Yes, If Pain Regimen Started, Initiate Bowel Regimen: NA, Screen for Nausea/Vomitting: Yes Code Status: 04/18/18 22:31 Resuscitation Status: Active [RES] Routine Comment: Resuscitation Status: Full Code 04/18/18 23:05 CODE [Resuscitation Status: Active] [RES] Routine Comment: Resuscitation Status: DNR-Comfort Care-Arrest 04/21/18 12:49 CODE [Resuscitation Status: Active] [RES] Routine Comment: Resuscitation Status: [id number]
[2018-04-22] MEDS ORDERED: Acetaminophen 325 MG TABLET PO PRN (13:45)
[2018-04-22] MEDS: Furosemide 40 MG/4 ML VIAL IVP SCH (20:23)
[2018-04-23 05:04] LABS: Hematocrit 31.1 % (37.5-50.1); Hemoglobin 10.3 g/dL (12.9-16.9); Mean Corpuscular HGB Conc 33.1 g/dL (31.6-35.5); Mean Corpuscular Hemoglobin 30.7 pg (28.0-33.3); Mean Corpuscular Volume 92.8 fL (83.0-100.0); Monocytes # 1.6 K/mcL (0.0-1.3); Nucleated Red Blood Cells 0.6 /100 WBC (0); Platelet Count 245 K/mcL (140-400); Red Blood Count 3.35 M/mcL (4.19-5.50); Red Cell Distribution Width 16.1 % (11.5-14.5)
[2018-04-23] MEDS: Pantoprazole 40 MG VIAL IVP SCH (05:30)
[2018-04-23 05:33] LABS: Eosinophils # 0.3 K/mcL (0.0-0.6); Lymphocytes # 0.5 K/mcL (0.6-4.6); Neutrophils # 10.1 K/mcL (1.6-8.9); Platelet Estimate Normal (Normal)
[2018-04-23 05:34] LABS: Hypochromasia Present (Not Present); Polychromasia 1+ (Not Present)
[2018-04-23] MEDS: Nystatin Cream 15 GM TUBE TP SCH (08:18)
[2018-04-23] MEDS: Furosemide 40 MG/4 ML VIAL IVP SCH (08:18)
--- NOTE | 2018-04-23 10:57 | Event Note ---
Date of Encounter: 04/23/18 Time of Encounter: 10:30 Upon arrival for assessment, patient alert and oriented times 3. Patient denies pain, dyspnea, anxiety, shortness of breath, nausea and vomiting during assessment. Patient inquires when will go home. 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 Hospice to have equipment delivered this morning. Primary RN will need to notify [facility] once discharge has been written and they will arrange for transport. Notified Rachel RN to call [facility] at time of discharge for transportation to be set up.
[2018-04-23 11:47] VITALS: BP 126/79
--- NOTE | 2018-04-23 12:29 | Discharge Summary ---
<Dominick Low Jori - Last Filed: 04/23/18 21:42> - NOTES TO OUTPATIENT PROVIDER Notes to Outpatient Provider: Patient is being dscharged to hospice for respiratory and renal failure. Orders not resulted at time of discharge: Pending orders 04/23/18 12:00 Basic Metabolic Panel DAILY Date of Encounter: 04/23/18 Time of Encounter: 12:07 - Discharge Diagnosis (1) Acute respiratory failure with hypoxia Priority: Primary Status: Acute Assessment and Plan: Patient was admitted for respiratory failure likely secondary to heart failure He was intubated due to low oxygen saturation Patient has been extubated and is oxygenating and ventilating well on room air and intermittent nasal cannula Patient is going home with hospice management (2) Anemia Priority: Secondary Status: Acute Assessment and Plan: Patient hemoglobin currently stable, no active signs of bleeding Qualifiers: Anemia type: other cause Other causes of anemia: other cause, not classified Qualified Code(s): D64.89 - Other specified anemias (3) Atrial fibrillation Priority: Secondary Status: Chronic Assessment and Plan: Anticoagulation currently being held due to coagulopathy Qualifiers: Atrial fibrillation type: chronic Qualified Code(s): I48.2 - Chronic atrial fibrillation (4) Acute renal failure Priority: Secondary Status: Acute Assessment and Plan: creatinine improved, avoiding nephrotoxins, gentle hydration Qualifiers: Acute renal failure type: unspecified Qualified Code(s): N17.9 - Acute kidney failure, unspecified (5) Acute on chronic diastolic congestive heart failure Priority: Secondary Status: Chronic Assessment and Plan: continued diuretic regimen Hospital course: Mr. Calderon is a 72 year old male with history of A. fib on Coumadin, paraplegia , diastolic CHF transferred from [facility] [place] after being intubated for acute respiratory failure secondary to acute on chronic diastolic congestive heart failure. Patient was intubated and sedated. Patient presented [facility] on 04/16/18 with chief complaint of shortness of breath that was progressively worsening for 5 days. Patient's reported that she was replacing the patient's mattress Saturday prior to admission(patient has paraplegia from failed lumbar spinal fusion surgery) , lifted the patient up with a manual residential sales representative and during the process patient slipped inside of the residential sales representative , without falling, and patient told his that he had sudden onset of pain in his left flank. Patient's felt his left flank and noticed a knot. During the next five days, patient was noticed to have worsening edema of the lower extremities. Family noticed patient had decreased appetite, and worsening confusion. Family also states the patient did not have fevers, chills, chest pain, cough, hemoptysis, hematemesis, melena, hematochezia. Family did report sputum production. Due to worsening confusion and shortness of breath patient was brought to the ED. At that time it was noticed that he had a large hematoma in his left abdominal/flank wall. Patient was noted to have blood in the rectum by ED doctor. He was noticed to have a hemoglobin of 5.5, hypotensive , YVES, hyperkalemia, INR of 18, CHF exacerbation, WBC was 24 platelets 294, serum creatinine 2.92. Patient was transfused 2 units of packed red blood cells and started on norepinephrine drip. His INR was reversed with vitamin K and FFP and he was started on IV Lasix for diuresis. He was started on Protonix twice a day. Patient's hemoglobin improved to 8, INR to 1.8 but he still required pressor support and serum creatinine was 2.7. He underwent chest x- ray which showed cardiomegaly with interstitial pulmonary edema. Echocardiogram showed a left ventricular ejection fraction of 55-60% with aortic stenosis. Retroperitoneal ultrasound was negative for stones or obstructive uropathy. Initial ABG on admission at [facility] showed pH of 7.34 with a PCO2 of 25 and bicarbonate of 13.5. CPK was 236. On midnight of patient developed worsening confusion, shortness of breath and repeat ABG showed a pH of 6.9 with a PCO2 of 111 and a PO2 of 47 patient was intubated at [facility]. Thereafter patient was transferred to [facility] for further evaluation and treatment as there was mention of the patient may require dialysis for fluid overload and YVES. Patient was admitted for anemia, gastric bleed, acute respiratory failure with hypoxia, acute on chronic heart failure, acute renal failure, atrial fibrillation. Patient was started on rate control, GI consultation, diuresis with plan for dialysis if worsening renal failure. PPI and PRBC transfusion of 2 units also initiated. Large retroperitoneal hematoma was suspected. Patient was extubated on 04/21/2018. Treatment was continued with diuresis, gentle hydration, monitoring of labs and vitals. The patient's anemia did improve. INR also improved after administration of vitamin K. Palliative care was consultation and discussed plan of care with patient and who decided to proceed with discharge to home with hospice. CODE STATUS was changed to DNR comfort care. The patient was considered stable for discharge and was sent home on home medications, palliative care also wrote for anxiolytic therapy but the patient did not require further pain medicine. Patient will be sent home with established hospice care. Discharge discussed with: patient - Time Spent with Patient Total time spent providing and/or coordinating discharge services: - Discharge Medications Prescriptions: LORazepam Oral Conc [Ativan Oral Conc] 0.5 mg PO Q4HR PRN 7 Days #15 mls PRN Reason: Anxiety MORPHINE SUL Oral CONC [Roxanol Oral Conc] 2.5 mg SL Q2H PRN 7 Days #15 ml PRN Reason: short of breath/pain Home Medications: Ascorbic Acid [Vitamin C] 500 mg PO DAILY 04/18/18 [History] Calcium Citrate/Vitamin D2 [Cosmo-Citrate Plus Vitamin D Tab] 2 tab PO DAILY 04/18 [History] Ferrous Sulfate [Iron] 325 mg PO DAILY 04/18/18 [History] Gabapentin [Neurontin] 300 mg PO BID 04/18/18 [History] Insulin Glargine,Hum.rec.anlog [Lantus Solostar] 30 unit SQ DAILY 04/18/18 [ History] Lactobacillus Acidophilus [Acidophilus] 1 cap PO DAILY 04/18/18 [History] Pioglitazone HCl [Actos] 30 mg PO DAILY 04/18/18 [History] Potassium Chloride 20 mg PO 04/18/18 [History] Pravastatin Sodium [Pravachol] 20 mg PO DAILY 04/18/18 [History] Warfarin [Coumadin] 5 mg PO DAILY 04/18/18 [History] Metformin HCl [Metformin HCl ER] 500 mg PO 04/19/18 [History] LORazepam Oral Conc [Ativan Oral Conc] 0.5 mg PO Q4HR PRN 7 Days #15 mls [Rx] MORPHINE SUL Oral CONC [Roxanol Oral Conc] 2.5 mg SL Q2H PRN 7 Days #15 ml 04/23 [Rx] Allergies/Adverse Reactions: 3 Allergy/AdvReac Type Severity Reaction Status Date / Time iodine Allergy Unknown Hives Verified 04/18/18 22:51 Date of admission: 04/18/18 21:40 Primary care physician: PCP NONE Consults: 04/19/18 01:00 Consult to Critical Care [CONS] Routine Consulting Provider: Pulm Crit Care & Sleep Elizabeth Reason for Consult: respiratory failure Call Completed: No 04/19/18 02:36 Consult to Nephrology [CONS] Routine Consulting Provider: Kidney Elizabeth/SHELLY/KWAKU/LOUISE Reason for Consult: Eval for CRRT. Patient admitted in shock state with fluid overload. Call Completed: No 04/19/18 04:54 Consult to Enrichment Teacher [CONS] Routine Reason for SW Consult: Discharge planning, after D/C care. 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 04/21/18 11:11 Consult to Wound Care [CONS] Routine Reason for Consult: Excoriation in groin Call Completed: Yes 04/22/18 07:54 Consult to Palliative Care [CONS] Routine Comment: Consulting Provider: Palliative Care Elizabeth Reason for Consult: Goals of care Time Notified: 07:54 Call Completed: Yes 04/22/18 10:43 Consult to Speech Therapy [CONS] Routine Comment: Evaluate, develop and implement POC Reason for Consult: swllow study Time Notified: 10:46 Call Completed: No Discharging clinician: Dominick Low - Constitutional Vitals: Temp Pulse Resp BP Pulse Ox 96.8 F L 87 21 93/48 99 04/23/18 07:48 04/23/18 11:00 04/23/18 11:00 04/23/18 11:00 04/23/18 11:00 Exam: Patient is in no acute distress, alert and oriented 3 Heart is currently in regular rate and rhythm without murmur or gallop Lungs clear to auscultation Abdomen soft and nontender Legs nonedematous Skin warm and dry - Patient Status Disposition: Hospice - Home Condition: Fair Functional capacity at discharge: bed bound Overall status at discharge: patient is not back to baseline - Discharge Instructions Instructions: Warfarin (By mouth), Heart Failure (DC), Atrial Fibrillation (DC) , Acute Respiratory Distress Syndrome (DC), Vitamin K in Foods (DC), Anemia (GEN ), Venous Thromboembolism (DC) Follow Up With: NONE,PCP [Primary Care Provider] - - Diet and Activity Activity: increase activity as tolerated Diet: low salt diet - VTE Documentation of Mechanical Device: Intermittent pneumatic compression device <Viral Ng - Last Filed: 04/24/18 08:00> Date of Encounter: 04/23/18 - Discharge Diagnosis (1) Acute respiratory failure with hypoxia Status: Acute (2) GI bleed Status: Acute Qualifiers: GI bleed type/associated pathology: unspecified gastrointestinal hemorrhage type Qualified Code(s): K92.2 - Gastrointestinal hemorrhage, unspecified (3) Anemia Status: Acute Qualifiers: Anemia type: other cause Other causes of anemia: other cause, not classified Qualified Code(s): D64.89 - Other specified anemias (4) Atrial fibrillation Status: Chronic Qualifiers: Atrial fibrillation type: chronic Qualified Code(s): I48.2 - Chronic atrial fibrillation (5) Acute renal failure Status: Acute Qualifiers: Acute renal failure type: unspecified Qualified Code(s): N17.9 - Acute kidney failure, unspecified (6) Acute on chronic diastolic congestive heart failure Status: Chronic (7) DVT prophylaxis Status: Acute Hospital course: Mr. Calderon is a 72 year old male - Time Spent with Patient Total time spent providing and/or coordinating discharge services: Date of admission: 04/18/18 21:40 Primary care physician: PCP NONE Consults: 04/19/18 01:00 Consult to Critical Care [CONS] Routine Consulting Provider: Pulm Crit Care & Sleep Elizabeth Reason for Consult: respiratory failure Call Completed: No 04/19/18 02:36 Consult to Nephrology [CONS] Routine Consulting Provider: Kidney Elizabeth/SHELLY/KWAKU/LOUISE Reason for Consult: Eval for CRRT. Patient admitted in shock state with fluid overload. Call Completed: No 04/19/18 04:54 Consult to Enrichment Teacher [CONS] Routine Reason for SW Consult: Discharge planning, after D/C care. 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 04/21/18 11:11 Consult to Wound Care [CONS] Routine Reason for Consult: Excoriation in groin Call Completed: Yes 04/22/18 07:54 Consult to Palliative Care [CONS] Routine Comment: Consulting Provider: Palliative Care Elizabeth Reason for Consult: Goals of care Time Notified: 07:54 Call Completed: Yes 04/22/18 10:43 Consult to Speech Therapy [CONS] Routine Comment: Evaluate, develop and implement POC Reason for Consult: lela study Time Notified: 10:46 Call Completed: No - Constitutional Vitals: Temp Pulse Resp BP Pulse Ox 96.0 F L 87 21 93/48 99 04/23/18 12:06 04/23/18 11:00 04/23/18 11:00 04/23/18 11:00 04/23/18 11:00 - Attending Attestation I examined this patient and my medical decision-making was reviewed with the Resident Physician Dr. Low. I agree with the documented findings, disposition and treatment plan as described except to the extent set forth below. Mr. Calderon is a 72 year old male with history of A. fib on Coumadin, paraplegia , diastolic CHF transferred from [facility] [place] after being intubated for acute respiratory failure secondary to acute on chronic diastolic congestive heart failure. Pt was admitted to our ICU and started him on broad spec abx and diuresis. He got extubated eventually. Still requiring high flow O2. Pt and family wanted to go home under hospice care. Pt was evaluated Palliative care team and arranged for home hospice care. Pt is alert, awake and O x 3. He wanted to go home today.
[2018-04-23 13:05] LABS: Calcium 7.7 mg/dL (8.6-10.3); Potassium 2.9 mEq/L (3.5-5.1)
--- NOTE | 2018-04-23 13:59 | Physician Discharge Referral ---
Home Health/Hosp Referral Info Transfer to: Hospice Provider in Charge Post Discharge: Community Relations Liaison - Diagnosis (1) Acute respiratory failure with hypoxia Priority: Primary Status: Acute (2) Anemia Priority: Secondary Status: Acute (3) Atrial fibrillation Priority: Secondary Status: Chronic (4) Acute renal failure Priority: Secondary Status: Acute (5) Acute on chronic diastolic congestive heart failure Priority: Secondary Status: Chronic - Respiratory Orders Oxygen / L per min (2L PRN) Smoking Cessation: Smoking cessation has been advised. For more information, call the [place] Tobacco Quit Line at 7-143-ZRYX-NOW. - Diet/Nutrition Diet/Nutrition Orders: No Added Salt (REED) - Activity Activity Orders: Bedrest - Services Needed Following services are medically necessary services: Nursing, Physical Therapy, Occupational Therapy - Transfer Medications Prescriptions: LORazepam Oral Conc [Ativan Oral Conc] 0.5 mg PO Q4HR PRN 7 Days #15 mls PRN Reason: Anxiety MORPHINE SUL Oral CONC [Roxanol Oral Conc] 2.5 mg SL Q2H PRN 7 Days #15 ml PRN Reason: short of breath/pain Home Medications: Ascorbic Acid [Vitamin C] 500 mg PO DAILY 04/18/18 [History] Calcium Citrate/Vitamin D2 [Cosmo-Citrate Plus Vitamin D Tab] 2 tab PO DAILY 04/18 [History] Ferrous Sulfate [Iron] 325 mg PO DAILY 04/18/18 [History] Gabapentin [Neurontin] 300 mg PO BID 04/18/18 [History] Insulin Glargine,Hum.rec.anlog [Lantus Solostar] 30 unit SQ DAILY 04/18/18 [ History] Lactobacillus Acidophilus [Acidophilus] 1 cap PO DAILY 04/18/18 [History] Pioglitazone HCl [Actos] 30 mg PO DAILY 04/18/18 [History] Potassium Chloride 20 mg PO 04/18/18 [History] Pravastatin Sodium [Pravachol] 20 mg PO DAILY 04/18/18 [History] Warfarin [Coumadin] 5 mg PO DAILY 04/18/18 [History] Metformin HCl [Metformin HCl ER] 500 mg PO 04/19/18 [History] LORazepam Oral Conc [Ativan Oral Conc] 0.5 mg PO Q4HR PRN 7 Days #15 mls [Rx] MORPHINE SUL Oral CONC [Roxanol Oral Conc] 2.5 mg SL Q2H PRN 7 Days #15 ml 04/23 [Rx] Allergies/Adverse Reactions: 3 Allergy/AdvReac Type Severity Reaction Status Date / Time iodine Allergy Unknown Hives Verified 04/18/18 22:51 Certification: Further, I certify that my clinical findings support that this patient is homebound (i.e. absences from home require considerable and taxing effort and are for medical reasons or spiritism services or infrequently or short duration when for other reasons) because: Homebound Reason: Post-surgery restriction and or conditions limit ability to leave home, Severity of cardiac or pulmonary status limits activity tolerance Attestation: My signature below is to certify that this patient is under my care and that I, or nurse practitioner, or a physician's web production assistant working with me, has a face-to -face encounter with this patient.
== END 2018-04-23 16:15 | disposition hospice, home (50) | DRG 208 ==
LOC: ICNU 21:40
PROVIDERS: ADMIT Student in an Organized Health Care Education/Training Program; ATTEND Student in an Organized Health Care Education/Training Program